=== PATIENT | female | born 1975 | race Two or more races ===

== ENCOUNTER 2020-07-13 10:25 | Outpatient (REF) | payer OTHER, SELFPAY ==
--- NOTE | 2020-07-13 | US_ITS ---
EXAMINATION: US PELVIS COMPLETE CLINICAL INFORMATION: Excessive and frequent menstruation. COMPARISON: None. TECHNIQUE: Transabdominal and transvaginal ultrasound of pelvis is performed. FINDINGS: On transabdominal ultrasound, the uterus is anteverted and anteflexed measuring 9.1 cm in length, 4.2 cm in AP and 5.0 cm in transverse dimension. Endometrial thickness is 1.1 cm. No focal lesion seen. There are small nabothian cysts seen in the cervix. Left ovary measures 2.6 x 1.0 x 2.37 volume 3.1 mL. Previously measured 3.5 x 2.7 x 2.3 cm. Right ovary measures 6.1 x 4.1 x 4.9 cm and volume 64.1 mL. There is anechoic cyst measuring 6.0 x 3.3 x 5.1 cm with small daughter cyst with septations within measuring 3.1 x 2.9 x 2.9 cm. There is increased vascularity in the daughter cyst. There is a small paraovarian anechoic cyst measuring 2.1 x 1.5 x 1 0.5 mL There is no fluid in the cul-de-sac. IMPRESSION: Small nabothian cysts in the cervix. The uterus otherwise is unremarkable. Large right ovarian cysts with septated daughter cyst within. There is a right paraovarian cyst as well. There is no free fluid in cul-de-sac.
== END 2020-07-13 10:26 | disposition home or self-care (01) ==
LOC: HO.HMGCX 10:25
PROVIDERS: PCP Internal Medicine; Visit Provider Advanced Practice Midwife
DX: N92.0 Excessive and frequent menstruation with regular cycle (principal)
CPT/HCPCS: 76830; 76856

== ENCOUNTER 2020-08-06 07:47 | Outpatient (REF) | payer OTHER, SELFPAY | END 2020-08-06 07:48 | disposition home or self-care (01) | LOC: HO.LAB 07:47 | PROVIDERS: Visit Provider Obstetrics & Gynecology | DX: N93.9 Abnormal uterine and vaginal bleeding, unspecified (principal); N83.209 Unspecified ovarian cyst, unspecified side | CPT/HCPCS: 88305; 99202 ==

== ENCOUNTER 2020-08-07 06:57 | Outpatient (REF) | payer OTHER, SELFPAY ==
[2020-08-09 19:09] LABS: Follicle Stimulating Hormone 7.8 mIU/mL
[2020-08-13 23:31] LABS: Estradiol Free 0.15 pg/mL; Estradiol, Ultrasensitive 8 pg/mL
== END 2020-08-07 06:58 | disposition home or self-care (01) ==
LOC: HO.LAB 06:57
PROVIDERS: PCP Internal Medicine; Visit Provider Obstetrics & Gynecology
DX: N93.9 Abnormal uterine and vaginal bleeding, unspecified (principal); N83.209 Unspecified ovarian cyst, unspecified side
CPT/HCPCS: 82670; 83001

== ENCOUNTER 2020-08-11 08:28 | Outpatient (REF) | payer OTHER, SELFPAY | END 2020-08-11 08:29 | disposition home or self-care (01) | LOC: HO.LAB 08:28 | PROVIDERS: Visit Provider Internal Medicine | DX: Z20.828 Contact with and (suspected) exposure to other viral communicable diseases (principal) | CPT/HCPCS: C9803; U0003 ==

== ENCOUNTER → 2020-08-17 10:35 | Outpatient (BNVA) | payer OTHER, SELFPAY | PROVIDERS: Visit Provider Obstetrics & Gynecology | DX: Z76.89 Persons encountering health services in other specified circumstances (principal) ==

== ENCOUNTER → 2020-08-25 14:58 | Outpatient (BNVA) | payer OTHER, SELFPAY | PROVIDERS: Visit Provider Obstetrics & Gynecology | DX: Z76.89 Persons encountering health services in other specified circumstances (principal) ==

== ENCOUNTER → 2020-08-30 10:35 | Outpatient (BNVA) | payer SELFPAY | PROVIDERS: PCP Internal Medicine; Visit Provider Obstetrics & Gynecology | DX: Z01.818 Encounter for other preprocedural examination (principal); N93.9 Abnormal uterine and vaginal bleeding, unspecified; Z87.891 Personal history of nicotine dependence | CPT/HCPCS: 99212 ==

== ENCOUNTER 2020-09-02 09:01 | Day surgery (SDC) | payer SELFPAY ==
[2020-08-30 08:54] VITALS: BMI 30.2
--- NOTE | 2020-09-01 10:57 | HO.ANESPROP2 ---
Documented by User: Brigitte Merlos 09/01/20 10:58 HPI - Anesthesia Eval Consult details Narrative: 44yo F for hysteroscopy endometrial ablation [facility] Past Medical History Medical History Anemia Lab test negative for COVID-19 virus Post-operative nausea and vomiting Vaginal bleeding between periods Wears partial dentures Surgical History Surgical History History of pubovaginal sling Hx of tubal ligation Social History Social History (Updated 09/02/20 @ 10:02 by Whitney Montague) Alcohol intake: never Smoking Status: Former smoker Tobacco Type: Cigarette Smoked in Last 30 Days: No Smoking Quit Date: age 16 Use of substances other than those prescribed or required for medical reasons: Yes Substance Use Type: Marijuana Last Used Substance Other:: Yesterday Have you been hit, kicked, punched, or otherwise hurt by someone within the past year? If so, by whom?: No Advance Directives Information Provided: No Recently lost weight without trying: No Gender identity: female Meds Allergies Allergy/AdvReac Type Severity Reaction Status Date / Time No Known Allergies Allergy Verified 08/30/20 10:54 Home Medications Medication Instructions Recorded Confirmed Type ferrous sulfate 325 mg (65 mg 325 mg PO Q OTHER DAY 08/06/20 08/30/20 History iron) tablet Exam Exam Date and Time: September 01, 2020 1057 Height,Weight and Vital Signs: Height 5 ft 1 in Weight 72.575 kg Assessment and Plan Assessment Anesthesia Assessment: Chart Reviewed Documented by User: Whitney Montague 09/02/20 10:52 [facility] Past Medical History Medical History Anemia Lab test negative for COVID-19 virus Post-operative nausea and vomiting Vaginal bleeding between periods Wears partial dentures Family History Family history of problems with anesthesia: No Surgical History Surgical History History of pubovaginal sling Hx of tubal ligation History of Problems with Anesthesia: No Social History Social History (Updated 09/02/20 @ 10:02 by Whitney Montague) Alcohol intake: never Smoking Status: Former smoker Tobacco Type: Cigarette Smoked in Last 30 Days: No Smoking Quit Date: age 16 Use of substances other than those prescribed or required for medical reasons: Yes Substance Use Type: Marijuana Last Used Substance Other:: Yesterday Have you been hit, kicked, punched, or otherwise hurt by someone within the past year? If so, by whom?: No Advance Directives Information Provided: No Recently lost weight without trying: No Gender identity: female Meds Allergies Allergy/AdvReac Type Severity Reaction Status Date / Time No Known Allergies Allergy Verified 08/30/20 10:54 Home Medications Medication Instructions Recorded Confirmed Type ferrous sulfate 325 mg (65 mg 325 mg PO Q OTHER DAY 08/06/20 08/30/20 History iron) tablet Exam Height,Weight and Vital Signs: Vital Signs Temp Pulse Resp BP Pulse Ox 09/02/20 09:23 97.7 F 90 18 114/72 99 Pertinent Lab Results Pertinent Lab Results: Lab Results 09/02/20 Range/Units 09:18 Beta HCG, Quant < 2 mIU/mL Airway Mallampati Class: II TM Dist: >3cm Neck ROM: Full Denture: Upper Heart: RRR Lungs: CTAB Assessment and Plan Assessment Anesthesia Assessment: Anesthesia Plan Discussed and Chart Reviewed Final Anesthetic Review NPO: Yes ASA Class: II Final Preanesthetic Review: No Changes in Pt Med Stat, Meds/Allgs Chart Reviewed and Anes Risks/Benef Reviewed Patient Risk: Low Procedure Risk: Low Anesthetic Plan Anesthetic Plan: GA Disposition: Standard PACU
[2020-09-02] VITALS (16 sets, daily range): BP systolic 109–143; BP diastolic 70–85; PULSE 70–90; RESP 12–18; TEMP 36.1–37.1; O2SAT 96–100
[2020-09-02] MEDS: Lactated Ringers 1,000 ML 100 ML IVCONT (09:29)
[2020-09-02] MEDS: Acetaminophen 325 MG TABLET 650 MG PO (09:33)
[2020-09-02 10:28] LABS: HCG Quantitative < 2 mIU/mL
--- NOTE | 2020-09-02 10:44 | MHC.SHP ---
Pre-Procedural Eval Section A The patient is an INPATIENT: No Changes since office visit: No Cold of Flu in the past 2 weeks, No New Medical Problems, No Changes in Medication and No Patient answered all questions The History & Physical has been completed within 30 days and I have reviewed it.: Yes Section B Chief Complaint: abnormal vaginal bleeding Allergies: Allergies Allergy/AdvReac Type Severity Reaction Status Date / Time No Known Allergies Allergy Verified 08/30/20 10:54 Plan Patient has been examined and remains a candidate for the planned procedure
--- NOTE | 2020-09-02 11:51 | P.OP_ITS ---
Operative Note Operative Note Date of Service: 09/02/20 Narrative: Ms. Hernandez is a 44 year old with menorrhagia for the last two months. Medical management was attempted with provera but was inadequate to resolve symptoms. An endometrial biopsy was performed, which showed prolif erative endometrium without atypia. The patient was counseled that endometrial ablation is not indicated if she desires future fertility. The patient expressed understanding of this and stated that her family planning is complete and her current form of control is tubal ligation. Surgical Risks: The patient was informed of the risks and benefits of the procedure. Risks included but were not limited to bleeding, infection, injury to the vulva, vagina, or cervix, and uterine perforation. The patient was also informed of the risk that the Novasure ablation may not result in full resolution of symptoms. The patient expressed understanding of the risks involved, all questions were answered, and she consented to the procedure. The patient was taken to the operating room where a time out was performed to confirm correct patient and correct procedure. General anesthesia was established. The patient was then positioned on the operating table in the dorsal lithotomy position and her legs supported using stirrups. All pressure points were padded and a warm blanket was placed to maintain control of core body temperature. The patient was then prepped and draped in the usual sterile fashion. A bimanual exam was performed and the uterus was found to be anteverted. The adnexa were palpated bilaterally and there were no palpable masses. The bladder was emptied with a straight catheter and 50mL of urine was obtained. A bivalve speculum was inserted into the vagina. The anterior lip of the cervix was visualized and grasped using a single tooth tenaculum. The hysteroscope was introduced through the cervix and advanced to the fundus of the uterus under direct visualization using distending media. Inspection of the entire uterine cavity was performed. There were no abnormalities noted, although the endometrium looked polypoid--no discrete polyps or myoma noted. The ostia were visualized bilaterally. The hysteroscope was then removed. A curette was inserted through the cervix to the fundus and sharp curettage was performed in 360 degrees. Endometrial curettings were sent to pathology. The distance from the fundus to the cervix was marked and measured and found to be 5cm. The sound was then removed and the Novasure was introduced through the cervix and advanced to the fundus. The Novasure was released and rotated from side to side in order to measure the cavity width; it was found to be 4.4cm. The test was performed using the NovaSure and there was no leakage of gas noted. The NovaSure was then set and deployed. It was set to a power of 80V and a burn time of 1:05. The NovaSure was then fully retracted and the hysteroscope reintroduced through the cervix and global ablation to the entire cavity was noted. The procedure was felt to be successful. The hysteroscope was then removed and the single tooth tenaculum was removed from the anterior lip of the cervix. Good hemostasis was confirmed. All needle, sponge, and instrument counts were noted to be correct x2 at the end of the procedure. The patient was transferred to the recovery room in stable condition. EBL: minimal Fluid deficit: 75mL (which was believed to be located in the tubing)
[2020-09-02] MEDS: oxyCODONE HCl Immed Release 5 MG TABLET PO ×2 (12:15→13:16)
[2020-09-02] MEDS: fentaNYL citrate/PF 100 MCG/2 ML VIAL 25 MCG IVPUSH ×4 (12:16→12:48)
--- NOTE | 2020-09-02 13:08 | HO.POSTANES ---
Post Anesthesia Evaluation Post Anesthesia Evaluation Vital Signs: Vital Signs Temp Pulse Resp BP Pulse Ox 09/02/20 12:53 97 F 83 16 115/76 99 09/02/20 12:48 16 09/02/20 12:47 74 16 109/76 97 09/02/20 12:35 72 16 110/70 96 09/02/20 12:31 16 09/02/20 12:30 70 16 118/74 97 09/02/20 12:21 16 09/02/20 12:20 73 16 115/81 97 09/02/20 12:16 16 09/02/20 12:15 70 16 130/70 98 09/02/20 11:57 78 16 117/77 99 09/02/20 11:52 98.7 F 87 12 118/75 100 09/02/20 09:23 97.7 F 90 18 114/72 99 09/02/20 09:15 97.7 F 90 18 114/72 99 Anesthesia: General Mental Status: Awake Pain Control: Satisfactory Nausea/Vomiting: None Hydration: Adequate Anesthesia-Related Issues: No Anes. Related Issues
== END 2020-09-02 23:59 | disposition home or self-care (01) ==
PROVIDERS: PCP Internal Medicine; Visit Provider Obstetrics & Gynecology
PROC: 0UJD8ZZ Inspection of Uterus and Cervix, Via Natural or Artificial Opening Endoscopic (ICD-10-PCS; CPT 58555; principal; 2020-09-02 10:50)
DX: N93.9 Abnormal uterine and vaginal bleeding, unspecified (principal); R10.2 Pelvic and perineal pain; N85.00 Endometrial hyperplasia, unspecified; N92.0 Excessive and frequent menstruation with regular cycle; N85.8 Other specified noninflammatory disorders of uterus; Z98.51 Tubal ligation status
CPT/HCPCS: 58563; 84702; 88305; J1100; J1885; J2250; J2405; J3010

== ENCOUNTER 2020-09-14 08:02 | Outpatient (REF) | payer SELFPAY | END 2020-09-14 08:03 | disposition home or self-care (01) | LOC: HO.LAB 08:02 | PROVIDERS: PCP Internal Medicine; Visit Provider Internal Medicine | DX: Z20.828 Contact with and (suspected) exposure to other viral communicable diseases (principal) | CPT/HCPCS: C9803; U0003 ==

== ENCOUNTER → 2020-09-15 11:07 | Outpatient (BNVA) | payer SELFPAY | PROVIDERS: PCP Internal Medicine; Visit Provider Obstetrics & Gynecology | DX: Z09 Encounter for follow-up examination after completed treatment for conditions other than malignant neoplasm (principal); Z98.890 Other specified postprocedural states | CPT/HCPCS: 99212 ==

== ENCOUNTER 2020-09-22 10:35 | Outpatient (REF) | payer SELFPAY ==
--- NOTE | 2020-09-22 10:39 | US_ITS ---
EXAMINATION: ULTRASOUND PELVIS COMPLETE. CLINICAL INFORMATION: Unspecified origin cysts. COMPARISON: None TECHNIQUE: Transabdominal and transvaginal ultrasound the pelvis is performed. FINDINGS: On transabdominal ultrasound the uterus is anteflexed and anteverted measuring 7.8 cm in length, 3.5 cm in AP and 4.8 cm in transverse dimension. No focal lesions seen. Endometrial thickness is 0.5 cm. Right ovary measures 4.2 x 2.9 x 2.5 cm and volume 15.9 mL. There is anechoic cyst measuring 2.6 x 1.8 x 2.5 cm. There is a right paraovarian cyst measuring 1.9 x 1.3 x 1.7 cm. The left ovary measures 2.3 x 2.0 x 2.0 cm and volume 4.8 mL. There is no free fluid in cul-de-sac. US/US pelvic complete IMPRESSION: Small 2.6 cm right ovary cyst and 1.9 cm right paraovarian cyst.. Unremarkable left ovary and uterus.
--- NOTE | 2020-09-22 10:39 | US_ITS ---
EXAMINATION: ULTRASOUND PELVIS COMPLETE. CLINICAL INFORMATION: Unspecified origin cysts. COMPARISON: None TECHNIQUE: Transabdominal and transvaginal ultrasound the pelvis is performed. FINDINGS: On transabdominal ultrasound the uterus is anteflexed and anteverted measuring 7.8 cm in length, 3.5 cm in AP and 4.8 cm in transverse dimension. No focal lesions seen. Endometrial thickness is 0.5 cm. Right ovary measures 4.2 x 2.9 x 2.5 cm and volume 15.9 mL. There is anechoic cyst measuring 2.6 x 1.8 x 2.5 cm. There is a right paraovarian cyst measuring 1.9 x 1.3 x 1.7 cm. The left ovary measures 2.3 x 2.0 x 2.0 cm and volume 4.8 mL. There is no free fluid in cul-de-sac. US/US transvaginal IMPRESSION: Small 2.6 cm right ovary cyst and 1.9 cm right paraovarian cyst.. Unremarkable left ovary and uterus.
== END 2020-09-22 10:36 | disposition home or self-care (01) ==
LOC: HO.US 10:35
PROVIDERS: Visit Provider Obstetrics & Gynecology
DX: N83.209 Unspecified ovarian cyst, unspecified side (principal)
CPT/HCPCS: 76830; 76856

== ENCOUNTER → 2020-10-06 11:11 | Outpatient (BNVA) | payer OTHER, SELFPAY | PROVIDERS: PCP Internal Medicine; Visit Provider Obstetrics & Gynecology | DX: Z76.89 Persons encountering health services in other specified circumstances (principal) ==

== ENCOUNTER 2020-10-08 08:32 | Outpatient (REF) | payer OTHER, SELFPAY ==
[2020-10-09 12:24] LABS: BV Int Neg Control Negative (Negative); BV Int Pos Control Positive (Positive)
[2020-10-09 15:37] LABS: C. trachomatis RNA TMA NOT DETECTED (NOT DETECTED); N. gonorrhoeae RNA TMA NOT DETECTED (NOT DETECTED)
== END 2020-10-08 08:33 | disposition home or self-care (01) ==
LOC: HO.LAB 08:32
PROVIDERS: Advanced Practice Midwife; Visit Provider Internal Medicine
DX: Z20.822 Contact with and (suspected) exposure to COVID-19 (principal)
CPT/HCPCS: 36415; 81003; 87480; 87491; 87510; 87591; 87660; 99212; C9803; U0003

== ENCOUNTER 2020-11-09 07:53 | Outpatient (REF) | payer OTHER, SELFPAY | END 2020-11-09 07:54 | disposition home or self-care (01) | LOC: HO.LAB 07:53 | PROVIDERS: Visit Provider Internal Medicine | DX: Z20.822 Contact with and (suspected) exposure to COVID-19 (principal) | CPT/HCPCS: 36415; C9803; U0003; U0005 ==

== ENCOUNTER 2020-11-22 07:56 | Outpatient (REF) | payer OTHER, SELFPAY | END 2020-11-22 07:57 | disposition home or self-care (01) | LOC: HO.LAB 07:56 | PROVIDERS: Visit Provider Internal Medicine | DX: Z20.822 Contact with and (suspected) exposure to COVID-19 (principal) | CPT/HCPCS: 36415; C9803; U0003; U0005 ==

== ENCOUNTER 2020-12-13 11:25 | Outpatient (REF) | payer OTHER, SELFPAY | END 2020-12-13 11:26 | disposition home or self-care (01) | LOC: HO.LAB 11:25 | PROVIDERS: Visit Provider Internal Medicine | DX: Z20.822 Contact with and (suspected) exposure to COVID-19 (principal) | CPT/HCPCS: 36415; C9803; U0003; U0005 ==

== ENCOUNTER 2020-12-30 09:10 | Outpatient (REF) | payer OTHER, SELFPAY ==
[2020-12-30 09:44] LABS: COVID-19 Test Negative (Negative); IDNOW Serial# 55D5AD1C
== END 2020-12-30 09:11 | disposition home or self-care (01) ==
LOC: HO.LAB 09:10
PROVIDERS: Visit Provider Internal Medicine
DX: Z20.822 Contact with and (suspected) exposure to COVID-19 (principal)
CPT/HCPCS: 36415; 87635; C9803

== ENCOUNTER 2021-01-13 08:26 | Outpatient (REF) | payer OTHER, SELFPAY ==
[2021-01-13 08:54] LABS: COVID-19 Test Negative (Negative)
== END 2021-01-13 08:27 | disposition home or self-care (01) ==
LOC: HO.LAB 08:26
PROVIDERS: Visit Provider Internal Medicine
DX: Z20.822 Contact with and (suspected) exposure to COVID-19 (principal)
CPT/HCPCS: 36415; 87635; C9803

== ENCOUNTER 2021-01-18 08:58 | Outpatient (REF) | payer OTHER, SELFPAY ==
[2021-01-18 09:18] LABS: COVID-19 Test Negative (Negative)
== END 2021-01-18 08:59 | disposition home or self-care (01) ==
LOC: HO.LAB 08:58
PROVIDERS: Visit Provider Internal Medicine
DX: Z20.822 Contact with and (suspected) exposure to COVID-19 (principal)
CPT/HCPCS: 36415; 87635; C9803

== ENCOUNTER 2021-03-04 09:40 | Outpatient (REF) | payer OTHER, SELFPAY | END 2021-03-04 09:41 | disposition home or self-care (01) | LOC: HO.LAB 09:40 | PROVIDERS: Visit Provider Internal Medicine | DX: Z20.822 Contact with and (suspected) exposure to COVID-19 (principal) | CPT/HCPCS: C9803; U0003; U0005 ==

== ENCOUNTER 2021-04-26 09:20 | Outpatient (REF) | payer OTHER, SELFPAY | END 2021-04-26 09:21 | disposition home or self-care (01) | LOC: HO.LAB 09:20 | PROVIDERS: Visit Provider Internal Medicine | DX: Z20.822 Contact with and (suspected) exposure to COVID-19 (principal) | CPT/HCPCS: C9803; U0003; U0005 ==

== ENCOUNTER 2021-05-16 08:21 | Outpatient (REF) | payer OTHER, SELFPAY ==
[2021-05-16 10:53] LABS: Hematocrit 39.5 % (37-47); Hemoglobin 12.9 g/dl (12.0-16.0); Mean Corpuscular HGB Conc 32.7 g/dl (31.0-35.0); Mean Corpuscular Hemoglobin 27.2 pg (27.0-33.0); Mean Corpuscular Volume 83.3 fL (80-98); Mean Platelet Volume 12.1 fL (9.4-12.3); Platelet Count 262 X10*3/uL (160-400); Red Blood Count 4.74 X10*6/uL (4.20-5.50); Red Cell Distribution Width 13.5 % (11.0-16.0); White Blood Count 7.5 X10*3/uL (4.8-10.8)
[2021-05-16 11:31] LABS: Syphilis Screen Nonreactive (Nonreactive)
[2021-05-16 11:34] LABS: HBsAGNum1 0.26 S/CO (0.00-0.99); Hepatitis B Surface Antigen Negative (Negative); Thyroid Stimulating Hormone 0.91 uIU/mL (0.32-4.0)
[2021-05-16 11:35] LABS: HIV AB/AG Nonreactive (Nonreactive); HIV Num 1 0.07 S/CO (0.00-0.99)
[2021-05-16 13:10] LABS: ~HepC Num2 0.92; ~HepC Num3 0.92; ~Hepatitis C Antibody GRAYZONE (Nonreactive)
[2021-05-17 04:56] LABS: CT PCR NOT DETECTED (Not Detect.); NG PCR NOT DETECTED (Not Detect.)
[2021-05-17 09:36] LABS: BV Int Neg Control Negative (Negative); BV Int Pos Control Positive (Positive)
[2021-05-19 15:12] LABS: HPV mRNA E6/E7 rflx Not Detected (Not Detected)
== END 2021-05-16 08:22 | disposition home or self-care (01) ==
LOC: HO.LAB 08:21
PROVIDERS: Visit Provider Advanced Practice Midwife
DX: Z01.411 Encounter for gynecological examination (general) (routine) with abnormal findings (principal); Z01.84 Encounter for antibody response examination; Z11.51 Encounter for screening for human papillomavirus (HPV); Z11.4 Encounter for screening for human immunodeficiency virus [HIV]; Z11.59 Encounter for screening for other viral diseases; Z11.3 Encounter for screening for infections with a predominantly sexual mode of transmission; N95.1 Menopausal and female climacteric states; R68.82 Decreased libido; E66.9 Obesity, unspecified; Z20.2 Contact with and (suspected) exposure to infections with a predominantly sexual mode of transmission
CPT/HCPCS: 36415; 84443; 85027; 86780; 86803; 87340; 87389; 87480; 87491; 87510; 87591; 87624; 87660; 88142

== ENCOUNTER 2021-07-02 08:05 | Outpatient (REF) | payer OTHER, SELFPAY ==
--- NOTE | ~2021-07-02 | MM_ITS ---
EXAMINATION: MM SCREENING DIGITAL BREAST TOMOSYNTHESIS, BILATERAL CLINICAL INFORMATION: Screening. Asymptomatic. The lifetime risk of breast cancer based on the Tyrer-Cuzick Model is 18%. COMPARISON: Mammography: 01/04/2019, 04/07/2015, 11/20/2013 TECHNIQUE: Digital breast tomosynthesis is performed in both the craniocaudal and mediolateral oblique views along with computer-aided detection (CAD). Synthesized 2D images are generated from the tomosynthesis. FINDINGS: The breasts are heterogeneously dense, which may obscure small masses (ACR BI-RADS breast composition Category c). There are no significant masses, abnormal calcifications, or other abnormalities. The axilla and skin contours are unremarkable. No significant changes. MM/MM tomosynthesis screening BI IMPRESSION: No mammographic evidence of malignancy. ASSESSMENT: BI-RADS 1: Negative RECOMMENDATION: Routine annual mammography screening. This patient's information was entered into a reminder system with a target due date for their next mammogram.
== END 2021-07-02 08:06 | disposition home or self-care (01) ==
LOC: HO.MAMMO 08:05
PROVIDERS: Visit Provider Advanced Practice Midwife
DX: Z12.31 Encounter for screening mammogram for malignant neoplasm of breast (principal)
CPT/HCPCS: 77063; 77067

== ENCOUNTER 2021-07-26 08:39 | Outpatient (REF) | payer OTHER, SELFPAY | END 2021-07-26 08:40 | disposition home or self-care (01) | LOC: HO.LAB 08:39 | PROVIDERS: Visit Provider Internal Medicine | DX: Z20.822 Contact with and (suspected) exposure to COVID-19 (principal) | CPT/HCPCS: C9803; U0003; U0005 ==

== ENCOUNTER 2021-08-23 14:49 | Outpatient (REF) | payer OTHER, SELFPAY ==
[2021-08-23 17:01] LABS: Alanine Aminotransferase 35 U/L (0-31); Albumin Level 3.9 g/dL (3.5-5.0); Alkaline Phosphatase 79 U/L (39-117); Amylase 61 U/L (28-100); Anion Gap 13 (12-20); Aspartate Amino Transferase 22 U/L (5-31); Bilirubin Total 0.2 mg/dL (0.0-1.0); Blood Urea Nitrogen 8 mg/dL (9-16); Calcium 9.1 mg/dL (8.4-10.2); Carbon Dioxide 24 mmol/L (22-29); Chloride 106 mmol/L (96-108); Estimated Glomerular Filt Rate > 60; Glucose Random 98 mg/dL (60-115); Lipase 111 U/L (8-78); Sodium 139 mmol/L (135-145); Total Protein 7.2 g/dL (6.5-8.0)
== END 2021-08-23 14:50 | disposition home or self-care (01) ==
LOC: HO.LAB 14:49
PROVIDERS: Visit Provider Nurse Practitioner
DX: R10.13 Epigastric pain (principal); K59.04 Chronic idiopathic constipation; A04.8 Other specified bacterial intestinal infections
CPT/HCPCS: 36415; 80053; 82150; 83690; 99212

== ENCOUNTER 2021-09-06 08:16 | Outpatient (REF) | payer OTHER, SELFPAY ==
--- NOTE | ~2021-09-06 | US_ITS ---
EXAMINATION: US ABDOMEN COMPLETE CLINICAL INFORMATION: Epigastric pain. COMPARISON: None TECHNIQUE: Real-time imaging of the abdominal viscera. FINDINGS: PANCREAS: Normal. ABDOMINAL AORTA: The proximal, mid, and distal segments are normal in caliber. INFERIOR VENA CAVA: Visualized portions are normal. LIVER: The liver is normal in size. The liver contour is normal. Echotexture is increased. No focal hepatic lesion. There is no intrahepatic biliary duct dilatation seen. GALLBLADDER: Normal. The gallbladder is physiologically distended without evidence of stones, sludge, polyps, wall thickening or pericholecystic fluid. COMMON BILE DUCT: Normal in caliber measuring 0.48 cm in diameter. RIGHT KIDNEY: Normal. No hydronephrosis. No renal calculi or focal parenchymal lesions. The kidney measures 10.6 cm in maximum dimension. LEFT KIDNEY: No hydronephrosis or focal parenchymal lesions. The kidney measures 10.0 cm in maximum dimension. There are several echogenic densities in the upper pole with twinkle artifact suggestive of stones. Largest measures 7 mm. SPLEEN: Normal. The spleen measures 10.0 cm in maximum dimension. FREE FLUID: None. US/US abdomen complete IMPRESSION: Echogenic liver. Probable left renal stones.
== END 2021-09-06 08:17 | disposition home or self-care (01) ==
LOC: HO.HMGCX 08:16
PROVIDERS: Visit Provider Nurse Practitioner
DX: R10.13 Epigastric pain (principal)
CPT/HCPCS: 76700

== ENCOUNTER 2021-09-12 08:09 | Outpatient (REF) | payer OTHER, SELFPAY ==
[2021-09-12 11:59] LABS: IDNOW Serial# 16C4AD1C
[2021-09-12 12:00] LABS: COVID-19 Test Negative (Negative)
== END 2021-09-12 08:10 | disposition home or self-care (01) ==
LOC: HO.LAB 08:09
PROVIDERS: Visit Provider Internal Medicine
DX: Z20.822 Contact with and (suspected) exposure to COVID-19 (principal)
CPT/HCPCS: 36415; 87635; C9803

== ENCOUNTER 2021-09-20 08:42 | Outpatient (REF) | payer OTHER, SELFPAY ==
[2021-09-20 09:09] LABS: COVID-19 Test Positive (Negative); IDNOW Serial# 16C4AD1C
== END 2021-09-20 08:43 | disposition home or self-care (01) ==
LOC: HO.LAB 08:42
PROVIDERS: Visit Provider Internal Medicine
DX: Z20.822 Contact with and (suspected) exposure to COVID-19 (principal)
CPT/HCPCS: 36415; 87635; C9803

== ENCOUNTER 2021-09-29 11:15 | Outpatient (REF) | payer OTHER, SELFPAY ==
[2021-09-29 13:24] LABS: Binax Internal Control QC Valid; Binax Now Covid-19 Ag Negative (Negative)
== END 2021-09-29 11:16 | disposition home or self-care (01) ==
LOC: HO.LAB 11:15
PROVIDERS: Visit Provider Internal Medicine
DX: Z20.822 Contact with and (suspected) exposure to COVID-19 (principal)
CPT/HCPCS: 36415; C9803

== ENCOUNTER 2021-10-18 06:21 | Day surgery (SDC) | payer OTHER, SELFPAY ==
[2021-09-20 15:16] VITALS: BMI 32.3
--- NOTE | 2021-10-17 10:43 | HO.ANESPROP2 ---
Documented by User: Brigitte Merlos NP 10/17/21 10:43 HPI - Anesthesia Eval Consult details Narrative: 45yo F for Upper Endoscopy and Colonoscopy PMFSH Active Problems Active Problems: All Active Problems (Updated 09/20/21 @ 15:19 by Maranda Manning RN) Ovarian cyst (Acute) Abnormal uterine bleeding (Acute) Pelvic pain (Acute) Vaginal discharge (Acute) Perimenopause (Acute) Well woman exam with routine gynecological exam (Acute) Decreased libido (Acute) Potential exposure to STD (Acute) Cervical cancer screening (Acute) Obesity (BMI 30.0-34.9) (Acute) Chronic idiopathic constipation (Acute) Depression with anxiety (Acute) H. pylori infection (Acute) Epigastric pain (Acute) Past Medical History Medical History Anemia COVID-19 vaccine series completed GERD (gastroesophageal reflux disease) Lab test negative for COVID-19 virus Post-operative nausea and vomiting Vaginal bleeding between periods Wears partial dentures Family History Family history of problems with anesthesia: No Surgical History Surgical History History of pubovaginal sling Hx of tubal ligation Status post endometrial ablation History of Problems with Anesthesia: No Social History Social History Alcohol intake: never Patient Tobacco Use Status: Never used Tobacco Substance Use Type: Marijuana Substance Use Frequency: Occasionally Are you DNR?: No Advance Directives: No Advance Directives Information Provided: Yes (informational brochure mailed) Advance Directives on File: No Recently lost weight without trying: No Eating poorly because of decreased appetite: No Nutrition Risks: No Nutritional Risk Gender identity: Female Meds Allergies Allergy/AdvReac Type Severity Reaction Status Date / Time No Known Allergies Allergy Verified 08/23/21 15:22 Home Medications Medication Instructions Recorded Confirmed Last Taken Type ferrous sulfate 325 mg (65 mg 325 mg PO Q OTHER DAY 08/06/20 09/20/21 Unknown History iron) tablet Exam Exam Date and Time: October 17, 2021 1043 Height,Weight and Vital Signs: Height 5 ft 1 in Weight 77.564 kg Pertinent Lab Results Pertinent Lab Results: Laboratory Tests 08/23/21 16:23 Sodium 139 Potassium 4.0 Chloride 106 Carbon Dioxide 24 BUN 8 L Creatinine 0.74 Assessment and Plan Assessment Anesthesia Assessment: Chart Reviewed Final Anesthetic Review Family History of Problems with Anesthesia: No History of Problems with Anesthesia: No Documented by User: Pj Marquez 10/18/21 07:33 REPLACED BY [facility] Past Medical History Medical History Anemia COVID-19 vaccine series completed GERD (gastroesophageal reflux disease) Lab test negative for COVID-19 virus Post-operative nausea and vomiting Vaginal bleeding between periods Wears partial dentures Functional capacity: independent ambulation Surgical History Surgical History History of pubovaginal sling Hx of tubal ligation Status post endometrial ablation History of Problems with Anesthesia: Yes (Ponv ) Social History Social History Alcohol intake: never Patient Tobacco Use Status: Never used Tobacco Substance Use Type: Marijuana Substance Use Frequency: Occasionally Are you DNR?: No Advance Directives: No Advance Directives Information Provided: Yes (informational brochure mailed) Advance Directives on File: No Recently lost weight without trying: No Eating poorly because of decreased appetite: No Nutrition Risks: No Nutritional Risk Gender identity: Female Meds Allergies Allergy/AdvReac Type Severity Reaction Status Date / Time No Known Allergies Allergy Verified 08/23/21 15:22 Home Medications Medication Instructions Recorded Confirmed Last Taken Type ferrous sulfate 325 mg (65 mg 325 mg PO Q OTHER DAY 08/06/20 09/20/21 Unknown History iron) tablet Exam Airway Mallampati Class: III TM Dist: >3cm Neck ROM: Full Partial: Upper Loose/Missing/Broken Teeth: Yes (Loose upper ) Heart: rrr Lungs: bl breath sounds Assessment and Plan Final Anesthetic Review History of Problems with Anesthesia: Yes (Ponv ) NPO: Yes ASA Class: II, III and Emergency Final Preanesthetic Review: Meds/Allgs Chart Reviewed and Anes Risks/Benef Reviewed Patient Risk: Intermediate Procedure Risk: Intermediate Anesthetic Plan Anesthetic Plan: MAC: Disposition: Standard PACU
[2021-10-18 06:44] VITALS: BP 125/84; PULSE 86; RESP 16; TEMP 36.1; O2SAT 98
[2021-10-18] MEDS: Lactated Ringers 1,000 ML 100 ML IVCONT (06:49)
--- NOTE | 2021-10-18 07:28 | MHC.SHP ---
Pre-Procedural Eval Section A Date of Service: 10/18/21 The patient is an INPATIENT: No The History & Physical has been completed within 30 days and I have reviewed it.: No Section B Chief Complaint: Colon cancer screening, Epigastric Pain Details of Present Illness: Colon cancer screening, epigastric pain, GERD, nausea, bloating, early satiety Relevant Family History (Specify if Yes): No Relevant Social History: None Present Medications: see Short Stay Collaborative assessment Medical History: Significant History (Anemia Lab test negative for COVID-19 virus Post-operative nausea and vomiting Vaginal bleeding between periods Wears partial dentures) History of Previous Operations: Relevant previous surgery/procedure and date(s) (History of pubovaginal sling Hx of tubal ligation Status post endometrial ablation) Allergies: Allergies Allergy/AdvReac Type Severity Reaction Status Date / Time No Known Allergies Allergy Verified 08/23/21 15:22 Review of Systems Sugical H&P ROS: Negative: Constitution, Cardiovascular and Respiratory and Yes, Specify: Gastrointestinal (GERD, constipation) Exam Surgical H&P Exam: Normal: Heart, Normal: Lungs, Normal: Extremities and Normal: Abdomen Plan Diagnosis/Plan: Unchanged I have reviewed the history and physical and performed a pertinent physical examination on my patient. No changes have occurred unless specified.
--- NOTE | 2021-10-18 07:30 | PM.OP ---
Brief Operative Note Date of Service: 10/18/21 Pre-op diagnosis: Colon cancer screening, epigastric pain, GERD, nausea, bloating, early satiety Post-op diagnosis: other (GERD, Gastritis, Gastric ulcer, colon polyps, diverticulosis, hemorrhoids) Procedure: FLEXIBLE TRANSORAL UPPER GASTROINTESTINAL ENDOSCOPY WITH BIOPSIES AND COLONOSCOPY TILL CECUM WITH BIOPSIES UPPER ENDOSCOPY Consent: Indications for the procedure and potential complications of bleeding, perforation, reaction to medications and missed diagnosis were discussed with the patient and informed consent was obtained. Instrument: Olympus GIF H 190 mid size upper endoscope Monitoring: Vital signs and clinical assessment, continuous EKG monitoring, Pulse oximetry, Carbon Dioxide monitoring and blood pressure monitoring were done throughout the procedure. Procedure: The patient was placed in the left lateral decubitis position and pre-procedure medications were administered and a bite block was placed. The endoscope was inserted into the mouth and advanced under direct vision to the third part of duodenum. A careful inspection was made as the upper endoscope was withdrawn including a retroflexed examination of the proximal stomach; Findings and interventions are described below. Findings: Larynx: Normal Esophagus: GE junction at 36 cms. No esophagitis or Clement's. Stomach: A 7-8 mm ulcer in the antrum with surrouding edematous folds - biopsied. Mild gastric erythema. Biopsies were obtained. Grade 2 flap valve on retroflexed examination of the cardia. Duodenum: Normal bulb and descending duodenum. Biopsies were obtained from 3rd part of duodenum to check for celiac sprue. Intervention: Biopsies as noted above COLONOSCOPY PROCEDURE NOTE Consent: Indications for the procedure and potential complications of bleeding, perforation, reaction to medications and missed diagnosis were discussed with the patient and informed consent was obtained. Instrument: Olympus PCF H 190 L variable stiffness pediatric colonoscope Monitoring: Vital signs and clinical assessment, intermittent blood pressure monitoring, continuous EKG monitoring, Pulse oximetry and Carbon Dioxide monitoring were done throughout the procedure. Colon withdrawl time was 23 minutes. Procedure: The patient was placed in the left lateral decubitis position and pre-procedure medications were administered. After a digital rectal examination of the ano-rectum, the video colonoscope was inserted into the rectum and advanced through the colon to the cecum. The colonoscope was slowly withdrawn in a retrograde panoramic fashion and the colon mucosa was carefully examined including a retroflexed view of the rectum. Findings and interventions are described below. Procedure Difficulty: : Without difficulty Findings: Terminal Ileum: Not evaluated Cecum: A 3-4 mm diminutive appearing polyp which was removed with cold biopsy Ascending Colon: Normal Transverse Colon: Normal Descending Colon: Normal Sigmoid Colon: Moderate diverticulosis Rectum: Normal Ano-rectum: Moderate internal hemorrhoids and perianal skin tags Colon preparation: Good after copious irrigation Impression and Post Procedure Diagnosis: Endoscopy Findings: ESOPHAGUS: Normal STOMACH: A 7-8 mm ulcer in the antrum with surrouding edematous folds (likely due to Ibuprofen) - biopsied. Mild gastric erythema. Biopsies were obtained. DUODENUM: Normal - biopsied to check for celiac sprue Colonoscopy Findings: One small polyp removed Moderate diverticulosis seen in the sigmoid colon Moderate hemorrhoids on retroflexed exam. Plan: Await pathology results. Stop Ibuprofen if possible. Patient has an appointment on 11/01/21 in the [facility] with Brielle Palomares NP. REpeat EGD in 3 months for FU of gastric ulcer. Repeat Colonoscopy interval based on path results - in 5 years if polyps are adenomatous and 10 years if polyps are hyperplastic. GERD, PUD, colon polyps and diverticulosis handouts were given in the discharge area Surgeon: Kishore Page MD Anesthesia: MAC (Dr Marquez & Dr Brewer) Was an Provider Relations Representative used for this Procedure?: Yes Provider Relations Representative: Kate Patel Estimated blood loss (mL): 0 Pathology: other (A. small bowel bxs, R/O celiac B. gastric antrum bxs, R/O H. pylori C. gastric ulcer bxs D. cecal polyp) Condition: stable Disposition: PACU
--- NOTE | 2021-10-18 07:30 | W.PM.OPN ---
Operative Note Operative Note Date of Service: 10/18/21 Narrative: Pre-op diagnosis:?Colon cancer screening, epigastric pain, GERD, nausea, bloating, early satiety Post-op diagnosis:?other (GERD, Gastritis, Gastric ulcer) Procedure:? FLEXIBLE TRANSORAL UPPER GASTROINTESTINAL ENDOSCOPY WITH BIOPSIES AND COLONOSCOPY TILL CECUM WITH BIOPSIES UPPER ENDOSCOPY Consent:?Indications for the procedure and potential complications of bleeding, perforation, reaction to medications and missed diagnosis were discussed with the patient and informed consent was obtained. Instrument:?Olympus GIF H 190 mid size upper endoscope Monitoring: Vital signs and clinical assessment, continuous EKG monitoring, Pulse oximetry, Carbon Dioxide monitoring and blood pressure monitoring were done throughout the procedure. Procedure:?The patient was placed in the left lateral decubitis position and pre-procedure medications were administered and a bite block was placed. The endoscope was inserted into the mouth and advanced under direct vision to the third part of duodenum. A careful inspection was made as the upper endoscope was withdrawn including a retroflexed examination of the proximal stomach; Findings and interventions are described below. Findings: Larynx:? Normal Esophagus:?GE junction at 36 cms.? No esophagitis or Clement's. Stomach:?A 7-8 mm ulcer in the antrum with surrouding edematous folds - biopsied. Mild gastric erythema. Biopsies were obtained. Grade 2 flap valve on retroflexed examination of the cardia. Duodenum:?Normal bulb and descending duodenum.? Biopsies were obtained from 3rd part of duodenum to check for celiac sprue. Intervention:?Biopsies as noted above COLONOSCOPY PROCEDURE NOTE Consent:?Indications for the procedure and potential complications of bleeding, perforation, reaction to medications and missed diagnosis were discussed with the patient and informed consent was obtained. Instrument:?Olympus PCF H 190 L variable stiffness pediatric colonoscope Monitoring:?Vital signs and clinical assessment, intermittent blood pressure monitoring, continuous EKG monitoring, Pulse oximetry and Carbon Dioxide monitoring were done throughout the procedure. Colon withdrawl time was 23 minutes. Procedure:?The patient was placed in the left lateral decubitis position and pre-procedure medications were administered. After a digital rectal examination of the ano-rectum, the video colonoscope was inserted into the rectum and advanced through the colon to the cecum. The colonoscope was slowly withdrawn in a retrograde panoramic fashion and the colon mucosa was carefully examined including a retroflexed view of the rectum. Findings and interventions are described below. Procedure Difficulty:?: Without difficulty Findings: Terminal Ileum: Not evaluated Cecum:? A 3-4 mm diminutive appearing polyp which was removed with cold biopsy Ascending Colon:??Normal Transverse Colon:??Normal Descending Colon:? Normal Sigmoid Colon:??Moderate diverticulosis Rectum:??Normal Ano-rectum:??Moderate internal hemorrhoids and perianal skin tags Colon preparation:? Good after copious irrigation Impression and Post Procedure Diagnosis: Endoscopy Findings: ESOPHAGUS: Normal STOMACH:?A 7-8 mm ulcer in the antrum with surrouding edematous folds (likely due to Ibuprofen) - biopsied. Mild gastric erythema. Biopsies were obtained. DUODENUM: Normal - biopsied to check for celiac sprue Colonoscopy Findings: One small polyp removed Moderate diverticulosis seen in the sigmoid colon Moderate hemorrhoids on retroflexed exam. Plan: Await pathology results. Stop Ibuprofen if possible. Patient has an appointment on 11/01/21 in the [facility] Clinic with? Brielle Palomares NP. REpeat EGD in 3 months for FU of gastric ulcer. Repeat Colonoscopy interval based on path results - in 5 years if polyps are adenomatous and 10 years if polyps are hyperplastic. Above findings were reviewed with the patient and GERD, PUD, colon polyps and diverticulosis handouts were given in the discharge area Surgeon:?Kishore Page MD Anesthesia:?MAC (Dr Marquez & Dr Brewer) Was an Director Of Marketing And Promotions used for this Procedure?:?Yes Director Of Marketing And Promotions:?Kate Patel Estimated blood loss (mL):?0 Pathology:?other (A. small bowel bxs, R/O celiac? B. gastric antrum bxs, R/O H. pylori? C. gastric ulcer bxs? D. cecal polyp) Condition:?stable Disposition:?PACU
[2021-10-18 08:44] VITALS: BP 95/70; PULSE 98; RESP 16; TEMP 36.4; O2SAT 99
[2021-10-18 08:59] VITALS: BP 105/67; PULSE 87; RESP 16; O2SAT 96
[2021-10-18 09:14] VITALS: BP 112/70; PULSE 93; RESP 16; TEMP 36.4; O2SAT 96
--- NOTE | 2021-10-18 09:42 | PC.NURSE ---
DR. MÉNDEZ EVALUATED PATIENT AFTER SHE REPORTED A HEADACHE. NO NEW MEDICATIONS ORDERED. DR. MÉNDEZ STATED HEADACHE SHOULD RESOLVE ON ITS OWN. PT TO BE DISCHARGED AND IF FURTHER ISSUES TO HAVE HER GO TO THE ED AND/OR CALL 911.
== END 2021-10-18 09:54 ==
PROVIDERS: Visit Provider Internal Medicine Gastroenterology
PROC: (CPT 45380; principal; 2021-10-18 07:30)
DX: Z12.11 Encounter for screening for malignant neoplasm of colon (principal); Z80.0 Family history of malignant neoplasm of digestive organs; K63.5 Polyp of colon; K57.30 Diverticulosis of large intestine without perforation or abscess without bleeding; K64.8 Other hemorrhoids; K64.4 Residual hemorrhoidal skin tags; K59.04 Chronic idiopathic constipation; K21.9 Gastro-esophageal reflux disease without esophagitis; K29.50 Unspecified chronic gastritis without bleeding; B96.81 Helicobacter pylori [H. pylori] as the cause of diseases classified elsewhere; K25.9 Gastric ulcer, unspecified as acute or chronic, without hemorrhage or perforation; D64.9 Anemia, unspecified; Z79.899 Other long term (current) drug therapy; Z79.1 Long term (current) use of non-steroidal anti-inflammatories (NSAID); F12.90 Cannabis use, unspecified, uncomplicated; Z98.51 Tubal ligation status
CPT/HCPCS: 45380; 43239; 88305; 88342

== ENCOUNTER 2021-10-25 09:25 | Outpatient (REF) | payer OTHER, SELFPAY ==
--- NOTE | ~2021-10-25 | XR_ITS ---
EXAMINATION: XR CHEST CLINICAL INFORMATION: Shortness of breath COMPARISON: None TECHNIQUE: 2 views of the chest were obtained. FINDINGS: No significant abnormality is noted involving the heart, lungs, mediastinum, bony thorax or soft tissues. XR/XR chest 2V IMPRESSION: Unremarkable examination.
== END 2021-10-25 09:26 | disposition home or self-care (01) ==
LOC: HO.XRAY 09:25
PROVIDERS: Visit Provider Internal Medicine Gastroenterology
DX: R06.02 Shortness of breath (principal)
CPT/HCPCS: 71046

== ENCOUNTER 2021-10-26 10:27 | Outpatient (REF) | payer OTHER, SELFPAY ==
[2021-10-26 10:48] LABS: COVID-19 Test Negative (Negative)
== END 2021-10-26 10:28 | disposition home or self-care (01) ==
LOC: HO.LAB 10:27
PROVIDERS: Visit Provider Internal Medicine
DX: Z20.822 Contact with and (suspected) exposure to COVID-19 (principal)
CPT/HCPCS: 87635; C9803

== ENCOUNTER → 2021-11-01 09:19 | Outpatient (BNVA) | payer OTHER, SELFPAY | PROVIDERS: PCP Internal Medicine; Referring Provider Internal Medicine; Visit Provider Nurse Practitioner | DX: K59.04 Chronic idiopathic constipation (principal); K27.9 Peptic ulcer, site unspecified, unspecified as acute or chronic, without hemorrhage or perforation; A04.8 Other specified bacterial intestinal infections; B96.81 Helicobacter pylori [H. pylori] as the cause of diseases classified elsewhere; R10.13 Epigastric pain | CPT/HCPCS: 99212 ==

== ENCOUNTER 2021-12-09 09:42 | Outpatient (REF) | payer OTHER, SELFPAY ==
[2021-12-11 11:34] LABS: H Pylori Breath Test Positive (Negative)
== END 2021-12-09 09:43 | disposition home or self-care (01) ==
LOC: HO.LNP 09:42
PROVIDERS: PCP Internal Medicine; Referring Provider Internal Medicine; Visit Provider Nurse Practitioner
DX: K27.9 Peptic ulcer, site unspecified, unspecified as acute or chronic, without hemorrhage or perforation (principal); B96.81 Helicobacter pylori [H. pylori] as the cause of diseases classified elsewhere; K59.04 Chronic idiopathic constipation; R10.13 Epigastric pain; K21.9 Gastro-esophageal reflux disease without esophagitis; B37.81 Candidal esophagitis; B37.0 Candidal stomatitis
CPT/HCPCS: 83013; 99212

== ENCOUNTER → 2021-12-15 16:20 | Outpatient (BNVA) | payer OTHER, SELFPAY | PROVIDERS: PCP Internal Medicine; Referring Provider Internal Medicine; Visit Provider Nurse Practitioner | DX: Z12.11 Encounter for screening for malignant neoplasm of colon (principal); K21.9 Gastro-esophageal reflux disease without esophagitis; K27.9 Peptic ulcer, site unspecified, unspecified as acute or chronic, without hemorrhage or perforation; R10.13 Epigastric pain; B96.81 Helicobacter pylori [H. pylori] as the cause of diseases classified elsewhere | CPT/HCPCS: 99212 ==

== ENCOUNTER 2022-01-20 09:31 | Outpatient (REF) | payer OTHER, SELFPAY | END 2022-01-20 09:32 | disposition home or self-care (01) | LOC: HO.LNP 09:31 | PROVIDERS: Visit Provider Nurse Practitioner | DX: K27.9 Peptic ulcer, site unspecified, unspecified as acute or chronic, without hemorrhage or perforation (principal); B96.81 Helicobacter pylori [H. pylori] as the cause of diseases classified elsewhere | CPT/HCPCS: 87338 ==

== ENCOUNTER → 2022-04-11 11:53 | Outpatient (BNVA) | payer OTHER, SELFPAY | PROVIDERS: PCP Internal Medicine; Visit Provider Nurse Practitioner | DX: K27.9 Peptic ulcer, site unspecified, unspecified as acute or chronic, without hemorrhage or perforation (principal); B96.81 Helicobacter pylori [H. pylori] as the cause of diseases classified elsewhere; K21.9 Gastro-esophageal reflux disease without esophagitis; K59.04 Chronic idiopathic constipation | CPT/HCPCS: 99212 ==

== ENCOUNTER 2022-04-18 11:22 | Outpatient (REF) | payer OTHER, SELFPAY ==
[2022-04-18 18:33] LABS: CT PCR NOT DETECTED (Not Detect.); NG PCR NOT DETECTED (Not Detect.)
[2022-04-19 13:05] LABS: BV Int Neg Control Negative (Negative); BV Int Pos Control Positive (Positive)
== END 2022-04-18 11:23 | disposition home or self-care (01) ==
LOC: HO.LAB 11:22
PROVIDERS: Visit Provider Advanced Practice Midwife
DX: Z11.3 Encounter for screening for infections with a predominantly sexual mode of transmission (principal); R10.2 Pelvic and perineal pain; B37.3 Candidiasis of vulva and vagina
CPT/HCPCS: 87480; 87491; 87510; 87591; 87660; 99212

== ENCOUNTER 2022-05-16 09:52 | Outpatient (REF) | payer OTHER, SELFPAY ==
--- NOTE | ~2022-05-16 | US_ITS ---
EXAMINATION: US PELVIS CLINICAL INFORMATION: Pelvic and perineal pain. COMPARISON: None. TECHNIQUE: Ultrasound of the pelvis is performed using both transabdominal and transvaginal transducers along with Doppler. Transvaginal imaging is performed due to inadequate visualization transabdominally. FINDINGS: Uterus: The uterus is anteverted and measures 7.0 cm in length, 3.5 mL in AP and 4.0 cm wide. The double wall endometrial thickness is 0.55 cm. There is trace fluid in the endometrial canal The uterus is smooth in contour and has heterogeneous myometrium. There is anechoic cyst in the fundus measuring 0.7 x 0.6 x 0.6 cm, new. There is a hypoechoic lesion in the left mid uterus measuring 0.9 x 0.7 x 1.0 cm. A third lesion is seen in the lower anterior uterus measuring 1.2 x 0.6 x 0.8 cm. It is new. There are small nabothian cysts in the cervix. Some of the cysts are echogenic and complex. Adnexa: Both ovaries are visualized. There is normal color flow to the adnexa. There is no ovarian torsion. There is no pelvic ascites or fluid collection. Right ovary measures 3.2 x 1.5 x 1.7 cm and volume 4.4 mL. There is a 1.6 x 1.4 x 2.3 cm paraovarian anechoic cyst. There are punctate foci seen within the right ovary. Left ovary measures 2.6 x 2.1 x 2.0 cm and volume 5.7 mL. US/US pelvic and transvaginal IMPRESSION: Right paraovarian cyst with punctate foci. Unremarkable left ovary. At least 2 uterine fibroids and a small cyst. Minimal fluid within the endometrial canal. Cannot exclude small cervical myoma. Small nabothian cysts in the cervix.
== END 2022-05-16 09:53 | disposition home or self-care (01) ==
LOC: HO.HMGCX 09:52
PROVIDERS: PCP Internal Medicine; Visit Provider Advanced Practice Midwife
DX: R10.2 Pelvic and perineal pain (principal)
CPT/HCPCS: 76830; 76856

== ENCOUNTER → 2022-06-21 09:14 | Outpatient (REF) | payer OTHER, SELFPAY ==
--- NOTE | 2022-06-21 09:20 | CA_ITS ---
Transthoracic Echocardiogram Patient (Last, First, Middle): Kate Hernandez, Gender: Female Date of : 1975 Age: 46 Procedure Date: 06/21/2022 Procedure Type: Transthoracic Echocardiogram Location: OP Height: 154.94 cm Weight: 77.11 kg BSA: 1.76 m2 Heart Rate: bpm BP: 100 / 70 mmHg Backhoe Operator: TO Referring MD: Irving So MD Cloth Printing Utility Worker: Mic Landrum MD Symptoms: CP, UNSPECIFIED Study Quality: Fair ECG Rhythm: Sinus Conclusions: - Normal study Findings Left Ventricle Normal left ventricular size, thickness, and systolic function. Diastolic function is normal for age. Right Ventricle Normal right ventricular cavity size and systolic function. Atria Both atria are normal in size. Interatrial shunt cannot be excluded. Aortic Valve The aortic valve structure and function is likely normal. There is no aortic valve stenosis. There is no aortic valve regurgitation. Mitral Valve Likely normal mitral valve structure and function. There is trace mitral valve regurgitation. There is no mitral valve stenosis. Pulmonic Valve The pulmonic valve was not well visualized. Tricuspid Valve Likely normal tricuspid valve structure and function. There is trace tricuspid valve regurgitation. The right ventricular systolic pressure is normal. The right ventricular systolic pressure is 22 mmHg. Normal right atrial pressure. There is no evidence of pulmonary hypertension. Great Vessels All visible segments of the aorta are normal in size. The pulmonary artery was not well visualized. Venous The inferior vena cava is normal in size and collapses greater than 50% with inspiration. Pericardium/Pleural There is no evidence of pericardial effusion. Prior Study Comparison No prior study available for comparison. Measurements 2D Linear Measurements IVSd: 0.88 0.6-0.9/0.6-1.0 cm LVIDd: 4.38 3.9-5.3/4.2-5.9 cm LVIDd Index: 2.49 2.4-3.2/2.2-3.1 cm/m2 LVIDs: 2.46 2.0-3.6 cm LVPWd: 0.87 0.7-1.1 cm LA Diam: 2.80 2.7-3.8/3.0-4.0 cm LAIDs Index: 1.59 1.5-2.3 cm/m2 LV Mass: 152.52 67-162/88-224 g LV Mass Index: 86.66 43-95/49-115 g/m2 LVOT Diam: 2.10 3.0+(-)1.3 cm 2D Systolic Function EF 4C: 60.10 >55% EF 2C: 57.10 >55% EF BiP: 58.70 >55% Mitral Valve MV Pk E: 0.57 MV PK A: 0.60 MV Decel Time: 202.00 E/A: 0.90 E'Lateral: 8.92 E'Medial: 11.10 E/E' Med: 5.10 E/E' Lat: 6.40 PHT: 59.00 MVA PHT: 3.73 Decel [place]: 2.82 Aortic Valve AoV Pk Ilir: 1.12 AoV Mn Ilir: 0.82 AoV VTI: 0.22 AoV Pk Grad: 5.00 Aov Mn Grad: 3.00 STAR Cont.VTI: 2.11 LVOT LVOT Pk Ilir: 0.76 LVOT Mn Ilir: 0.51 LVOT VTI: 0.13 LVOT Pk Grad: 2.00 LVOT Mn Grad: 1.00 LVOT Diam: 2.10 LVOT Area: 3.46 Diastolic Function MV Pk E: 0.57 MV Pk A: 0.60 E/A: 0.90 E'Medial: 11.10 E/E' Med: 5.10 E' Laterial: 8.92 E/E' Lat: 6.40 Right Ventricle TAPSE (mm): 25.20 TVS' Ilir: 10.90 Tricuspid Valve TR Pk Ilir: 2.16 TR Pk Grad: 19.00 RA Press: 3.00 RVSP: 22.00 Great Vessels Aorta Sinus of Valsalva: 2.75 2.0-3.[address] [place]: 2.05 1.7-3.4 cm Ao Asc: 2.70 2.1-3.4 cm Updated in Other Vendor System with Status of Final Mic Landrum MD electronically signed on 06/21/2022 12:36:47 PM with status of Final
== END ==
LOC: HO.CARD 09:14
PROVIDERS: PCP Internal Medicine; Visit Provider Internal Medicine
DX: R07.9 Chest pain, unspecified (principal)
CPT/HCPCS: 93306

== ENCOUNTER 2022-08-05 07:50 | Outpatient (REF) | payer OTHER, SELFPAY ==
--- NOTE | ~2022-08-05 | MM_ITS ---
EXAMINATION: MM SCREENING DIGITAL BREAST TOMOSYNTHESIS, BILATERAL CLINICAL INFORMATION: Screening. Asymptomatic. COMPARISON: Mammography: 07/02/2021, 01/04/2019, 04/07/2015 TECHNIQUE: Digital breast tomosynthesis is performed in both the craniocaudal and mediolateral oblique views along with computer-aided detection (CAD). Synthesized 2D images are generated from the tomosynthesis. FINDINGS: The breasts are heterogeneously dense, which may obscure small masses (ACR BI-RADS breast composition Category c). There are no significant masses, abnormal calcifications, or other abnormalities. Parenchymal pattern is similar to prior studies. There is no developing density or architectural abnormality. There is a biopsy clip marker again noted posterior lower inner right breast. The axilla and skin contours are unremarkable. No significant changes. MM/MM tomosynthesis screening BI IMPRESSION: No mammographic evidence of malignancy. ASSESSMENT: BI-RADS 1: Negative RECOMMENDATION: Routine annual mammography screening. This patient's information was entered into a reminder system with a target due date for their next mammogram.
== END 2022-08-05 07:51 | disposition home or self-care (01) ==
LOC: HO.MAMMO 07:50
PROVIDERS: PCP Internal Medicine; Visit Provider Advanced Practice Midwife
DX: Z12.31 Encounter for screening mammogram for malignant neoplasm of breast (principal)
CPT/HCPCS: 77063; 77067

== ENCOUNTER 2022-08-08 10:52 | Day surgery (SDC) | payer OTHER, SELFPAY ==
[2022-08-01 15:41] VITALS: BMI 32.6
[2022-08-01 15:52] VITALS: BMI 32.1
--- NOTE | 2022-08-07 13:20 | HO.ANESPROP2 ---
Documented by User: Brigitte Merlos NP 08/07/22 13:22 HPI - Anesthesia Eval Consult details Narrative: 46yo F for Upper Endoscopy s/p EGD and Leslie 09/2021 with MAC (no PONV noted post procedure) PMFSH Active Problems Active Problems: All Active Problems (Updated 04/18/22 @ 11:37 by Natalie Williamson CNM) Ovarian cyst (Acute) Abnormal uterine bleeding (Acute) Pelvic pain (Acute) Vaginal discharge (Acute) Perimenopause (Acute) Well woman exam with routine gynecological exam (Acute) Decreased libido (Acute) Potential exposure to STD (Acute) Cervical cancer screening (Acute) Obesity (BMI 30.0-34.9) (Acute) Chronic idiopathic constipation (Acute) Depression with anxiety (Acute) Epigastric pain (Acute) SOB (shortness of breath) (Acute) H pylori ulcer (Acute) Candidiasis of mouth and esophagus (Acute) Colon cancer screening (Acute) Pelvic pain (Acute) Yeast infection of the vagina (Acute) GERD (gastroesophageal reflux disease) (Acute) Past Medical History Medical History (Updated 04/18/22 @ 11:37 by Natalie Williamson CNM) Anemia COVID-19 vaccine series completed GERD (gastroesophageal reflux disease) Lab test negative for COVID-19 virus Post-operative nausea and vomiting Vaginal bleeding between periods Wears partial dentures Family History Family history of problems with anesthesia: No Surgical History Surgical History (Updated 08/01/22 @ 15:51 by Kristie Martínez, PATTI) H/O colonoscopy History of esophagogastroduodenoscopy (EGD) History of pubovaginal sling Hx of tubal ligation Status post endometrial ablation History of Problems with Anesthesia: Yes Social History Social History (Updated 08/01/22 @ 15:52 by Kristie Martínez, RN) Are you a primary field care manager to a significant other at home: No Do you presently have visiting nurse or other home services: No Alcohol intake: never Patient Tobacco Use Status: Never used Tobacco Use of substances other than those prescribed or required for medical reasons: Yes Substance Use Type: Marijuana Substance Use Frequency: Daily Are you DNR?: No Advance Directives: No Advance Directives Information Provided: Yes Advance Directives on File: No Recently lost weight without trying: No Patient : No FDLMP: 08/2020 Gender identity: Female Meds Allergies Allergy/AdvReac Type Severity Reaction Status Date / Time No Known Allergies Allergy Verified 04/18/22 10:17 Exam Exam Date and Time: August 07, 2022 1320 Height,Weight and Vital Signs: Height 5 ft 1 in Weight 77.111 kg Narrative Narrative: ECHO 05/2022 Conclusions: - Normal study ? ?? Assessment and Plan Assessment Anesthesia Assessment: Chart Reviewed Final Anesthetic Review Family History of Problems with Anesthesia: No History of Problems with Anesthesia: Yes Documented by User: Saritha Salinas MD 08/08/22 12:30 [facility] Past Medical History Medical History (Updated 04/18/22 @ 11:37 by Natalie Williamson CNM) Anemia COVID-19 vaccine series completed GERD (gastroesophageal reflux disease) Lab test negative for COVID-19 virus Post-operative nausea and vomiting Vaginal bleeding between periods Wears partial dentures Surgical History Surgical History (Updated 08/01/22 @ 15:51 by Kristie Martínez RN) H/O colonoscopy History of esophagogastroduodenoscopy (EGD) History of pubovaginal sling Hx of tubal ligation Status post endometrial ablation History of Problems with Anesthesia: No Social History Social History (Updated 08/01/22 @ 15:52 by Kristie Martínez RN) Are you a primary field care manager to a significant other at home: No Do you presently have visiting nurse or other home services: No Alcohol intake: never Patient Tobacco Use Status: Never used Tobacco Use of substances other than those prescribed or required for medical reasons: Yes Substance Use Type: Marijuana Substance Use Frequency: Daily Are you DNR?: No Advance Directives: No Advance Directives Information Provided: Yes Advance Directives on File: No Recently lost weight without trying: No Patient : No FDLMP: 08/2020 Gender identity: Female Meds Allergies Allergy/AdvReac Type Severity Reaction Status Date / Time No Known Allergies Allergy Verified 04/18/22 10:17 Exam Airway Mallampati Class: II TM Dist: >3cm Neck ROM: Full Partial: Upper Heart: rrr Lungs: cta Assessment and Plan Assessment Anesthesia Assessment: Anesthesia Plan Discussed Final Anesthetic Review History of Problems with Anesthesia: No NPO: Yes ASA Class: II Final Preanesthetic Review: No Changes in Pt Med Stat, Meds/Allgs Chart Reviewed and Consent Obtained/Reviewed Patient Risk: Intermediate Procedure Risk: Intermediate Anesthetic Plan Anesthetic Plan: MAC: Disposition: Standard PACU
--- NOTE | 2022-08-08 11:41 | MHC.SHP ---
Pre-Procedural Eval Section A Date of Service: 08/08/22 Section B Chief Complaint: peptic ulcer,h.Pylori,constipation Relevant Family History (Specify if Yes): No Relevant Social History: None Present Medications: see Short Stay Collaborative assessment Medical History: Significant History (Anemia COVID-19 vaccine series completed GERD (gastroesophageal reflux disease) Lab test negative for COVID-19 virus Post-operative nausea and vomiting Vaginal bleeding between periods Wears partial dentures) History of Previous Operations: Relevant previous surgery/procedure and date(s) (H/O colonoscopy History of esophagogastroduodenoscopy (EGD) History of pubovaginal sling Hx of tubal ligation Status post endometrial ablation) Allergies: Allergies Allergy/AdvReac Type Severity Reaction Status Date / Time No Known Allergies Allergy Verified 04/18/22 10:17 Review of Systems Sugical H&P ROS: Negative: Constitution, Cardiovascular, Respiratory, Neurological, Psychiatric, Hem-Onc, Allergic/Immunologic, Gastrointestinal, Genitourinary, Musculoskeletal, Integumentary, Endocrine and Eyes/Ears/Nose/Throat Exam Surgical H&P Exam: Normal: HEENT, Normal: Heart, Normal: Lungs, Normal: Extremities, Normal: Abdomen, Normal: Skin and Normal: Neurological Plan Diagnosis/Plan: Unchanged I have reviewed the history and physical and performed a pertinent physical examination on my patient. No changes have occurred unless specified.
[2022-08-08 12:19] VITALS: BP 123/84; PULSE 75; RESP 18; TEMP 36.8; O2SAT 99
--- NOTE | 2022-08-08 12:23 | W.PM.OPN ---
Operative Note Operative Note Date of Service: 08/08/22 Narrative: Procedure Description: EGD Indication: hx of h pylori, ongoing abdominal pain Anesthesia: MAC FLEXIBLE TRANSORAL UPPER GASTROINTESTINAL ENDOSCOPY UPPER ENDOSCOPY Consent: Indications for the procedure and potential complications of bleeding, perforation, reaction to medications and missed diagnosis were discussed with the patient and informed consent was obtained. Instrument: Olympus GIF H 190 J mid size upper endoscope Monitoring: Vital signs and clinical assessment, continuous EKG monitoring, Pulse oximetry, Carbon Dioxide monitoring and blood pressure monitoring were done throughout the procedure. Procedure: The patient was placed in the left lateral decubitis position and pre-procedure medications were administered and a bite block was placed. The endoscope was inserted into the mouth and advanced under direct vision to the third part of duodenum. A careful inspection was made as the upper endoscope was withdrawn including a retroflexed examination of the proximal stomach; Findings and interventions are described below. Findings: Larynx:normal Esophagus: GE junction at 38 cm, diaphragm hiatus at 38 cm, irregular Z line with bogginess and erythema, bx taken from distal esophagus and GEJ Stomach: Patchy gastric erythema. Biopsies were obtained. Grade 2 flap valve on retroflexed examination of the cardia. Reduced gastric motility noted. Duodenum: Normal bulb and descending duodenum, bx taken Intervention: Biopsies as noted above Impression/Findings: gastritis esophagitis possible gastroparesis PLAN: await bx results if ongoing sx then consider GES.
[2022-08-08] MEDS: Lactated Ringers 1,000 ML 100 ML IVCONT (12:29)
[2022-08-08 13:02] VITALS: BP 93/63; PULSE 92; RESP 16; TEMP 36.2; O2SAT 97
[2022-08-08 13:17] VITALS: BP 104/56; PULSE 77; RESP 16; O2SAT 98
[2022-08-08] MEDS: ondansetron HCL 4 MG/2 ML VIAL IVPUSH (13:30)
[2022-08-08 13:32] VITALS: BP 124/74; PULSE 82; RESP 16; TEMP 36.6; O2SAT 99
== END 2022-08-08 14:16 | disposition home or self-care (01) ==
PROVIDERS: PCP Internal Medicine; Visit Provider Internal Medicine Gastroenterology
PROC: 0DJ08ZZ Inspection of Upper Intestinal Tract, Via Natural or Artificial Opening Endoscopic (ICD-10-PCS; CPT 43235; principal; 2022-08-08 12:40)
DX: K27.9 Peptic ulcer, site unspecified, unspecified as acute or chronic, without hemorrhage or perforation (principal); Z86.19 Personal history of other infectious and parasitic diseases; K59.04 Chronic idiopathic constipation; K29.50 Unspecified chronic gastritis without bleeding; K21.9 Gastro-esophageal reflux disease without esophagitis; K20.80 Other esophagitis without bleeding; K20.90 Esophagitis, unspecified without bleeding; K44.9 Diaphragmatic hernia without obstruction or gangrene
CPT/HCPCS: 43239; 88305; 88342; J2405

== ENCOUNTER 2022-08-21 11:06 | Outpatient (REF) | payer OTHER, SELFPAY ==
[2022-08-24 11:38] LABS: HPV mRNA E6/E7 rflx Not Detected (Not Detected)
== END 2022-08-21 11:07 | disposition home or self-care (01) ==
LOC: HO.LNP 11:06
PROVIDERS: Visit Provider Advanced Practice Midwife
DX: Z01.419 Encounter for gynecological examination (general) (routine) without abnormal findings (principal)
CPT/HCPCS: 87624; 88142

== ENCOUNTER → 2022-08-22 09:45 | Outpatient (BNVA) | payer OTHER, SELFPAY | PROVIDERS: PCP Internal Medicine; Visit Provider Nurse Practitioner | DX: K27.9 Peptic ulcer, site unspecified, unspecified as acute or chronic, without hemorrhage or perforation (principal); B96.81 Helicobacter pylori [H. pylori] as the cause of diseases classified elsewhere; K59.04 Chronic idiopathic constipation; R10.13 Epigastric pain; K21.9 Gastro-esophageal reflux disease without esophagitis | CPT/HCPCS: 99212 ==

== ENCOUNTER 2022-08-29 17:28 | Outpatient (REF) | payer OTHER, SELFPAY ==
[2022-08-30 14:47] LABS: H Pylori Breath Test Negative (Negative)
== END 2022-08-29 17:29 | disposition home or self-care (01) ==
LOC: HO.LNP 17:28
PROVIDERS: Visit Provider Internal Medicine Gastroenterology
DX: B96.81 Helicobacter pylori [H. pylori] as the cause of diseases classified elsewhere (principal); K27.9 Peptic ulcer, site unspecified, unspecified as acute or chronic, without hemorrhage or perforation; K59.04 Chronic idiopathic constipation; R10.13 Epigastric pain
CPT/HCPCS: 83013

== ENCOUNTER 2023-01-09 09:02 | Outpatient (REF) | payer OTHER, SELFPAY ==
[2023-01-12 11:25] LABS: H Pylori Breath Test Negative (Negative)
== END 2023-01-09 09:03 | disposition home or self-care (01) ==
LOC: HO.LNP 09:02
PROVIDERS: PCP Internal Medicine; Visit Provider Nurse Practitioner
DX: Z11.2 Encounter for screening for other bacterial diseases (principal)
CPT/HCPCS: 83013; 99211

== ENCOUNTER → 2023-03-01 09:28 | Outpatient (BNVA) | payer OTHER, SELFPAY | PROVIDERS: PCP Internal Medicine; Visit Provider Nurse Practitioner | DX: K21.9 Gastro-esophageal reflux disease without esophagitis (principal) | CPT/HCPCS: 99212 ==

== ENCOUNTER 2023-11-30 08:34 | Outpatient (REF) | payer OTHER, SELFPAY ==
[2023-11-30 16:11] LABS: Alanine Aminotransferase 36 U/L (0-31); Albumin Level 4.3 g/dL (3.5-5.0); Alkaline Phosphatase 88 U/L (39-117); Anion Gap 16 (12-20); Aspartate Amino Transferase 20 U/L (5-31); Bilirubin Total 0.3 mg/dL (0.0-1.0); Blood Urea Nitrogen 12 mg/dL (9-16); Carbon Dioxide 25 mmol/L (22-29); Chloride 103 mmol/L (96-108); Cholesterol 299 mg/dL (<200); Estimated Glomerular Filt Rate > 60; Glucose Random 41 mg/dL (60-115); HDL Cholesterol 42 mg/dL (>40); Potassium 4.4 mmol/L (3.3-5.1); Sodium 140 mmol/L (135-145); Total Protein 8.3 g/dL (6.5-8.0); Triglycerides 434 mg/dL (<150)
== END 2023-11-30 08:35 | disposition home or self-care (01) ==
LOC: HO.CHCLDS 08:34
PROVIDERS: Visit Provider Internal Medicine
DX: E78.2 Mixed hyperlipidemia (principal)
CPT/HCPCS: 36415; 80053; 80061

== ENCOUNTER 2023-12-06 10:24 | Outpatient (REF) | payer OTHER, SELFPAY ==
[2023-12-06 14:19] LABS: MANUAL DIFF FLAG NO
[2023-12-06 14:25] LABS: Basophils Percent Auto 0.5 % (0-2); Eosinophils Absolute Auto 0.1 X10*3/uL (0.0-0.4); Eosinophils Percent Auto 1.2 % (0-4); Hematocrit 40.1 % (37.0-47.0); Hemoglobin 13.2 g/dl (12.0-16.0); Imm Gran Abs Auto 0.03 X10*3/uL (0.00-0.03); Imm Gran Pct Auto 0.4 % (0.0-0.4); Lymphocytes Absolute Auto 2.3 X10*3/uL (1.2-4.9); Lymphocytes Percent Auto 28.5 % (20-40); Mean Corpuscular HGB Conc 32.9 g/dl (31.0-35.0); Mean Corpuscular Hemoglobin 26.7 pg (27.0-33.0); Mean Corpuscular Volume 81.2 fL (80.0-98.0); Mean Platelet Volume 11.7 fL (9.4-12.3); Monocytes Absolute Auto 0.6 X10*3/uL (0.1-1.2); Monocytes Percent Auto 6.8 % (2-11); Neutrophils Percent Auto 62.6 % (45-73); Platelet Count 266 X10*3/uL (160-400); Red Blood Count 4.94 X10*6/uL (4.20-5.50); Red Cell Distribution Width 13.2 % (11.0-16.0)
[2023-12-06 14:34] LABS: Estimated Average Glucose 108 mg/dL; Hemoglobin A1c % 5.4 % (<6.0)
[2023-12-06 15:14] LABS: TSH reflex Free T4 0.74 uIU/mL (0.32-4.0); Vitamin D 25-OH Total 22.3 ng/mL (>30)
[2023-12-06 15:30] LABS: Vitamin B12 309 pg/mL (200-900)
== END 2023-12-06 10:25 | disposition home or self-care (01) ==
LOC: HO.CHCLDS 10:24
PROVIDERS: Visit Provider Internal Medicine
DX: R53.83 Other fatigue (principal); E16.2 Hypoglycemia, unspecified; N95.1 Menopausal and female climacteric states
CPT/HCPCS: 36415; 82306; 82607; 82746; 83036; 84443; 85025

== ENCOUNTER 2023-12-17 09:23 | Outpatient (REF) | payer OTHER, SELFPAY ==
[2023-12-19 14:13] LABS: H Pylori Breath Test Negative (Negative)
== END 2023-12-17 09:24 | disposition home or self-care (01) ==
LOC: HO.LNP 09:23
PROVIDERS: PCP Internal Medicine; Visit Provider Nurse Practitioner
DX: Z11.0 Encounter for screening for intestinal infectious diseases (principal)
CPT/HCPCS: 83013; 99211

== ENCOUNTER 2023-12-29 10:22 | Outpatient (REF) | payer OTHER, SELFPAY | END 2023-12-29 10:23 | disposition home or self-care (01) | LOC: HO.MAMMO 10:22 | PROVIDERS: PCP Internal Medicine; Visit Provider Internal Medicine | DX: Z12.31 Encounter for screening mammogram for malignant neoplasm of breast (principal) | CPT/HCPCS: 77063; 77067 ==

== ENCOUNTER → 2023-12-29 10:30 | Outpatient (BNV) | payer OTHER, SELFPAY | PROVIDERS: PCP Internal Medicine; Visit Provider Radiology Diagnostic Radiology | DX: Z12.31 Encounter for screening mammogram for malignant neoplasm of breast (principal) | CPT/HCPCS: 77063; 77067 ==

== ENCOUNTER 2024-01-11 12:50 | Outpatient (REF) | payer OTHER, SELFPAY ==
--- NOTE | ~2024-01-11 | US_ITS ---
EXAMINATION: US PELVIS CLINICAL INFORMATION: Chronic pelvic pain; the last menstrual period was on 09/02/2020. COMPARISON: Pelvic ultrasound dated 05/16/2022. TECHNIQUE: Ultrasound of the pelvis is performed using both transabdominal and transvaginal transducers along with Doppler. Transvaginal imaging is performed due to inadequate visualization transabdominally. FINDINGS: Uterus: The uterus is anteverted and retroflexed. The uterus measures 6.4 x 3.0 x 3.9 cm. Simple nabothian cyst are again seen within the cervix. Within the cervix, a 5 x 3 x 5 mm hypoechoic, circumscribed lesion is seen, which may represent a complex nabothian cyst. This shows no associated color Doppler flow or change in through sound transmission. The double wall endometrial thickness is 3 mm. The uterus is smooth in contour and has normal myometrial echogenicity. No visible fibroid. Adnexa: Both ovaries are visualized. There is normal color flow to the adnexa. There is no ovarian torsion. There is no pelvic ascites or fluid collection. Right ovary measures 2.5 x 1.5 x 1.6 cm, volume 4.4 mL. A 2.0 x 1.3 x 1.4 cm exophytic simple cyst is seen, which requires no imaging follow-up. Again, there are punctate calcifications. Left ovary measures 2.9 x 1.5 x 1.4 cm, volume 3.2 mL. US/US pelvic and transvaginal IMPRESSION: 1. A benign, simple right ovarian cyst is seen, which requires no imaging follow-up. 2. Again, there are punctate foci within the right ovarian parenchyma, likely psammomatous calcifications or calcifications related to prior inflammation or infection. 3. Nabothian cysts are seen within the cervix. A 5 mm hypoechoic, circumscribed lesion within the cervix may represent a complex nabothian cyst. Gynecology evaluation management is recommended, including correlation with the patient's most recent Pap smear.
== END 2024-01-11 12:51 | disposition home or self-care (01) ==
LOC: HO.US 12:50
PROVIDERS: PCP Internal Medicine; Visit Provider Internal Medicine
DX: R10.2 Pelvic and perineal pain (principal)
CPT/HCPCS: 76830; 76856

== ENCOUNTER 2024-04-25 09:37 | Outpatient (REF) | payer OTHER, SELFPAY ==
[2024-04-26 09:15] LABS: Bacterial Vaginosis PCR NEGATIVE (Negative); Candida Group PCR DETECTED (Not Detect); Candida glab krusei PCR NOT DETECTED (Not Detect); Trichomonas vaginalis PCR NOT DETECTED (Not Detect)
[2024-04-26 09:53] LABS: CT PCR NOT DETECTED (Not Detect.); NG PCR NOT DETECTED (Not Detect.)
== END 2024-04-25 09:38 | disposition home or self-care (01) ==
LOC: HO.LAB 09:37
PROVIDERS: PCP Internal Medicine; Visit Provider Advanced Practice Midwife
DX: N83.209 Unspecified ovarian cyst, unspecified side (principal); R10.2 Pelvic and perineal pain; Z20.2 Contact with and (suspected) exposure to infections with a predominantly sexual mode of transmission; N89.8 Other specified noninflammatory disorders of vagina; Z98.890 Other specified postprocedural states; Z87.19 Personal history of other diseases of the digestive system
CPT/HCPCS: 0352U; 87086; 87491; 87591; 99212

== ENCOUNTER 2024-04-25 09:37 | Outpatient (AMB) | payer OTHER, SELFPAY ==
--- NOTE | 2024-04-25 09:42 | A.OFFVIS_ITS ---
Vital Signs 04/25/24 09:43 Height 5 ft 1 in Weight 177 lb BMI 33.4 BP 130/72 Intake Visit Reasons: pelvic pain Typists Supervisor Required: No Information Interpreted: clinical only Group Sales Coordinator: Group Sales Coordinator Present Allergies No Known Allergies Allergy (Verified 04/25/24 09:44) Medication List - Last Reconciled 04/25/24 by Natalie Williamson CNM ascorbate calcium (vitamin C) 500 mg PO DAILY cholecalciferol (vitamin D3) 25 mcg PO DAILY Post menopausal: Yes (2019) HPI HPI pelvic pain: Details: Patient is here because of a longstanding issue with pelvic pain she says it is worse when she walks and other things do not recreate it she does not think she has a UTI but urine was collected she says sometimes the pain meds from her lower abdomen all runs all the way through her flank and up to her back on the right side. She says she had an ultrasound and she talked with her primary care provider but it develops that those were probably months ago but she did not remember when though she later found evidence the ultrasound in her chart that she has reference sing from November or December of this year where she had thought that it was a year ago before She has had lots of issues with gastrointestinal issues and was placed on lots of different medications and has a longstanding history of chronic constipation where she only goes to the bathroom to have a bowel movement about once a week she said nothing worked the MiraLax so she stopped taking everything about a year ago she is only on vitamins now. She is not sexually active she has no concerns about infections at all. Again she does not think she has a UTI she had a colonoscopy sometime ago and she says they took out some polyps that that was all. She also had upper GI issues with H pylori but at some point she stopped the medications for those 2 she has an appointment coming up with Gastroenterology this coming week on Sunday. NOte, she does not get periods since she had ablation with Dr. Fernandes in 2019, however she can tell when she is at her time of menses by the premenstrual symptoms that precede it and breast tenderness. She gets some occasional hot flashes/breaking into sweat. PENDING SALE TO [facility] Medical History COVID-19 vaccine series completed GERD (gastroesophageal reflux disease) Vaginal bleeding between periods Wears partial dentures Post-operative nausea and vomiting Anemia Lab test negative for COVID-19 virus Surgical History History of esophagogastroduodenoscopy (EGD) H/O colonoscopy Status post endometrial ablation Hx of tubal ligation History of pubovaginal sling Family History Mother Breast cancer Colon cancer Maternal Grandmother Breast cancer Colon cancer Social History Are you a primary ambulatory care nurse to a significant other at home: No Do you presently have visiting nurse or other home services: No Alcohol intake: never Patient Tobacco Use Status: Never used Tobacco Substance Use Type: Marijuana Gender identity: Female Female Reproductive History Menstrual Age of Menarche: 6 Duration of menses: <3 days control method: permanent sterilization Total pregnancies: 2 Full term: 2 Date of last pap smear: 08/21/22 (neg pap) Physical Exam Vital Signs: Last Vital Signs BP 130/72 04/25/24 09:43 BMI result Body Mass Index 33.4 Other: External exam within normal limits. Vagina is pink and moist cervix pink smooth healthy appearing cervix is mobile nontender patient does complain of slightly more tenderness in right and left adnexal areas up high. Uterus not enlarged nontender good tone with External Female Exam: normal external appearance Speculum Exam - Vagina: normal appearance of the vagina and normal vaginal discharge Speculum Exam - Cervix: normal appearance of the cervix Bimanual exam- vagina & uterus: normal bimanual exam, uterine size normal, consistency normal, uterine mobility normal, uterine shape normal and non-tender Bimanual Exam- Adnexa, other: normal adnexae, no masses and No adnexal tenderness Results Reviewed Results Reviewed: Patient: Kate Hernandez MR#: [id number] : 1975 Acct:[id number] Age/Sex: 48 / F ADM Date: 01/11/24 Loc: [facility].US Attending Dr: Irving So MD Ordering Physician: Irving Burns MD Date of Service: 01/11/24 Procedure(s): US pelvic and transvaginal Accession Number(s): [id number] cc: Irving Burns MD~ EXAMINATION: US PELVIS CLINICAL INFORMATION: Chronic pelvic pain; the last menstrual period was on 09/02/2020. COMPARISON: Pelvic ultrasound dated 05/16/2022. TECHNIQUE: Ultrasound of the pelvis is performed using both transabdominal and transvaginal transducers along with Doppler. Transvaginal imaging is performed due to inadequate visualization transabdominally. FINDINGS: Uterus: The uterus is anteverted and retroflexed. The uterus measures 6.4 x 3.0 x 3.9 cm. Simple nabothian cyst are again seen within the cervix. Within the cervix, a 5 x 3 x 5 mm hypoechoic, circumscribed lesion is seen, which may represent a complex nabothian cyst. This shows no associated color Doppler flow or change in through sound transmission. The double wall endometrial thickness is 3 mm. The uterus is smooth in contour and has normal myometrial echogenicity. No visible fibroid. Adnexa: Both ovaries are visualized. There is normal color flow to the adnexa. There is no ovarian torsion. There is no pelvic ascites or fluid collection. Right ovary measures 2.5 x 1.5 x 1.6 cm, volume 4.4 mL. A 2.0 x 1.3 x 1.4 cm exophytic simple cyst is seen, which requires no imaging follow-up. Again, there are punctate calcifications. Left ovary measures 2.9 x 1.5 x 1.4 cm, volume 3.2 mL. US/US pelvic and transvaginal IMPRESSION: 1. A benign, simple right ovarian cyst is seen, which requires no imaging follow-up. 2. Again, there are punctate foci within the right ovarian parenchyma, likely psammomatous calcifications or calcifications related to prior inflammation or infection. 3. Nabothian cysts are seen within the cervix. A 5 mm hypoechoic, circumscribed lesion within the cervix may represent a complex nabothian cyst. Gynecology evaluation management is recommended, including correlation with the patient's most recent Pap smear. Dictated By: Ayaan Patino MD Signed By: <Electronically signed by Ayaan Patino MD in OV> 01/16/24 1126 DD/ 1342 TD/TT: Vineyard Worker: SKIP Name: Kate Hernandez Age/Sex: 46/F Attending: Natalie Williamson CNM : 1975 Submitted by: Natalie Williamson CNM Copies to: MR #: [id number] Status: DEP REF Collected: 08/21/22 Location: [facility] Received: 08/21/22 Interpretation Satisfactory for evaluation. Negative for intraepithelial lesion or malignancy. HPV mRNA E6/E7: NOT DETECTED This assay detects E6/E7 viral messenger RNA (mRNA) from 14 high-risk HPV types (16, 18, 31, 33, 35, 39, 45, 51, 52, 56, 58, 59, 66, 68) HPV testing performed by [facility], [place], [place]. See reference laboratory portion of the EMR for entire report. Clinical Information LMP: No menses Previous PAP test: 05/17/21, WNL Material Received ThinPrep-Cervical Electronically Signed By: Ade Amin 09/11/22 1557 The Pap Test is a screening procedure with the inherent possibility of both false negative and false positive results. Results should be interpreted in the context of historic and current clinical findings. Reliability of the Pap Test is enhanced by performing the test on a regular repetitive basis. Patient: Kate Hernandez Age/Sex: 46/F MR#: [id number] Page 1 of 1 Through patient portal we also reviewed together some of her colonoscopy results as well as other lab results and findings Colonoscopy revealed polyps and diverticulosis. Assessment & Plan Assessment & Plan (1) Ovarian cyst: Code(s): N83.209 - Unspecified ovarian cyst, unspecified side Category: Medical (2) Pelvic pain: Code(s): R10.2 - Pelvic and perineal pain Category: Medical (3) Status post endometrial ablation: Comment: 08/2020 Code(s): Z98.890 - Other specified postprocedural states Category: Surgical (4) Hx of constipation: Code(s): Z87.19 - Personal history of other diseases of the digestive system Category: Medical (5) History of diverticulosis: Code(s): Z87.19 - Personal history of other diseases of the digestive system Category: Medical Plan This is a lengthy visit trying to establish the history and symptoms she has been experiencing and her interpretation of labs and findings and results this is complicated by the fact that she had a gap in care because of gap of insurance however she has insurance now and wants to resume figuring out about her pelvic pain. She stopped all of her own GI medications in the last year so because she did not think there were helping she has an appointment to resume care with Gastroenterology she was encouraged to ask all of her questions and explore the issues of constipation and to also inquire as to whether not magnesium might be of any benefit with her gastrointestinal issues in terms of only having a full bowel movement once a week and her diverticulosis, I reviewed with her the challenge that diverticulosis especially in the face of constipation if bacteria and food particles collect in the diverticuli can lead to inflammation and pain known as diverticulitis which can be severe. Recommend doing anything she can to manage this issue in Partnership with GI. In the meantime to explore whether not there is anything public administration professor involved with her pain we will get another ultrasound. The previous 1 showed a nabothian cyst but this is however a normal finding of note I did not visualize any nabothian cyst on her cervix today. Her uterus was nontender and her cervix was nontender with motion. Her symptoms do not sound like a urinary tract infection but because of the origination of pain as being low in her pelvis especially when she moves then radiating through her right flank and up to her right upper back we explored the possibility something with her ureters or kidney stones so we are sending the UA C&S today and we will be looking for presence of large amounts of blood or any other unusual finding. We will have a visit after the ultrasound to try and tease out this challenge some more. Orders: Orders US pelvic and transvaginal Today N83.209 - Unspecified ovarian cyst, unspecified side, R10.2 - Pelvic and perineal pain, Z87.19 - Personal history of other diseases of the digestive system, Z98.890 - Other specified postprocedural states CT NG by PCR Today Z20.2 - Contact with and (suspected) exposure to infections with a predominantly sexual mode of transmission Bacterial Vaginosis Panel Today N89.8 - Other specified noninflammatory disorders of vagina Urine Culture Today R10.2 - Pelvic and perineal pain Coding Level of Care Code Est Pt Level 4 (01910) Complex EM visit Add On G2211 Diagnoses Ovarian cyst N83.209 Pelvic pain R10.2 Status post endometrial ablation Z98.890 Hx of constipation Z87.19 History of diverticulosis Z87.19
[2024-04-25 09:43] VITALS: BP 130/72; BMI 33.4
== END 2024-04-25 10:32 | disposition home or self-care (01) ==
LOC: HO.HWSM 09:37
PROVIDERS: PCP Internal Medicine; Visit Provider Advanced Practice Midwife
DX: N83.209 Unspecified ovarian cyst, unspecified side (principal); R10.2 Pelvic and perineal pain; Z98.890 Other specified postprocedural states; Z87.19 Personal history of other diseases of the digestive system
CPT/HCPCS: 99214; G2211

== ENCOUNTER 2024-04-25 10:31 | Outpatient (REF) | payer OTHER, SELFPAY | END 2024-04-25 10:32 | disposition home or self-care (01) | LOC: HO.LNP 10:31 | PROVIDERS: Visit Provider Advanced Practice Midwife | DX: Z13.89 Encounter for screening for other disorder (principal) ==

== ENCOUNTER 2024-04-29 13:49 | Outpatient (REF) | payer OTHER, SELFPAY ==
--- NOTE | ~2024-04-29 | US_ITS ---
EXAMINATION: US PELVIS CLINICAL INFORMATION: Pelvic pain, lower pelvic pain, ovarian cyst, last menstrual period August 2020, postmenopausal. COMPARISON: 01/11/2024, 05/16/2022. TECHNIQUE: Ultrasound of the pelvis is performed using both transabdominal and transvaginal transducers along with Doppler. Transvaginal imaging is performed due to inadequate visualization transabdominally. FINDINGS: The uterus is anteverted and measures 7.8 x 3.6 x 4.7 cm. No significant free fluid. Trace amount of fluid within the endometrial cavity. Double wall endometrial thickness is 4.4 mm. Right ovary measures 3.0 x 1.9 x 2.8 cm, volume 8.3 mL. 2.3 x 1.4 x 1.6 cm simple, exophytic right ovarian cyst. 2.0 x 1.3 x 1.7 cm simple right ovarian cyst. Previous exam demonstrated a 2.0 x 1.3 x 1.4 cm exophytic right ovarian cyst. There is no specific indication for additional imaging. Left ovary measures 3.5 x 1.9 x 2.2 cm, volume 7.5 mL. Left ovarian 2.3 x 1.2 x 1.2 cm simple cyst. There is no specific indication for additional imaging. Nabothian cysts present. US/US pelvic and transvaginal IMPRESSION: 1. Bilateral ovarian cysts, largest right 2.3 cm. No specific imaging followup recommended. 2. Trace amount of fluid within the endometrial cavity. Double wall endometrial thickness is 4.4 mm. Correlation with menstrual history recommended to determine further management.
== END 2024-04-29 13:50 | disposition home or self-care (01) ==
LOC: HO.HMGCX 13:49
PROVIDERS: PCP Internal Medicine; Visit Provider Advanced Practice Midwife
DX: R10.2 Pelvic and perineal pain (principal); N83.209 Unspecified ovarian cyst, unspecified side; Z98.890 Other specified postprocedural states; Z87.19 Personal history of other diseases of the digestive system
CPT/HCPCS: 76830; 76856

== ENCOUNTER 2024-11-01 12:30 | Emergency (ER) | payer SELFPAY ==
--- NOTE | ~2024-11-01 | XR_ITS ---
CLINICAL HISTORY: wheezing 2 view chest x-ray Comparison: None Findings: The lungs are clear. Heart size is normal. No acute fracture. IMPRESSION: 1. No acute findings. This document has been electronically signed by: Ana Villanueva MD on 11/01/2024 14:39:33
[2024-11-01 12:55] VITALS: BP 148/97; PULSE 101; RESP 18; TEMP 37; O2SAT 99; BMI 31.4
--- NOTE | 2024-11-01 12:56 | ED_ITS ---
HPI - General Adult General Chief complaint: Upper Respiratory Symptoms Stated complaint: sick, knot back of neck, tingling feeling Time Seen by Provider: 11/01/24 14:56 Source: patient Mode of arrival: ambulatory Limitations: no limitations History of Present Illness ED Provider: Amy Pan PA-C HPI narrative: Patient is a 48 year old assigned female at with a history of GERD presenting to the emergency department today with a cough and feeling generally unwell with a back of head headache. Patient states that over the last week she has had cold symptoms including a cough and this morning she began to have a headache in the back of her head. Patient denies any dizziness, lightheadedness, abdominal pain, nausea, vomiting, fever, chills, blurry vision, double vision, loss of vision, chest pain, difficulty breathing, shortness of breath, back pain, night sweats, pain with urination, increased urinary frequency, increased urinary urgency, blood in her urine or stool, syncope or a near syncopal episode, recent trauma or falls, bowel incontinence, bladder incontinence, or any other complaints at this time. Relieving factors: none Exacerbating factors: none Associated symptoms: cough and headaches Treatments prior to arrival: none Related Data Home Medications ?Medication ?Instructions ?Recorded ?Confirmed ascorbate calcium (vitamin C) 500 500 mg PO DAILY 04/25/24 04/25/24 mg tablet cholecalciferol (vitamin D3) 25 25 mcg PO DAILY 04/25/24 04/25/24 mcg (1,000 unit) capsule Allergies Allergy/AdvReac Type Severity Reaction Status Date / Time No Known Allergies Allergy Verified 11/01/24 12:58 Review of Systems 2 Constitutional: Constitutional: Reports no additional constitutional complaints, Denies chills, Denies fever(s), Reports headache(s) and Denies night sweats Eyes: Eyes: Reports no additional eye complaints, Denies blurry vision, Denies change in vision, Denies diplopia, Denies eye discharge, Denies loss of vision and Denies eye pain ENT: Denies dizziness and Reports headache(s) Cardiovascular: Cardiovascular: Reports no additional cardiovascular complaints, Denies chest pain, Denies lightheadedness, Denies Loss of Consciousness and Denies dyspnea Respiratory: Respiratory: Reports no additional respiratory complaints, Reports cough and Denies dyspnea Gastrointestinal: Gastrointestinal: Reports no additional gastrointestinal complaints, Denies abdominal pain, Denies melena, Denies hematochezia, Denies change in bowel habits and Denies change in stool character Genitourinary: Genitourinary: Denies hematuria, Denies urinary frequency, Denies dysuria, Denies urinary incontinence, Denies urinary hesitancy and Denies urinary urgency Musculoskeletal: Musculoskeletal: Reports no additional musculoskeletal complaints, Denies numbness and Denies tingling Neurologic: Denies dizziness, Reports headache(s), Denies loss of vision, Denies numbness and Denies tingling Psychiatric: Psychiatric: Reports no additional psychiatric complaints Endocrine: Endocrine: Reports no additional endocrine complaints Hematologic/Lymphatic: Hematologic/Lymphatic: Reports no additional hematologic/lymphatic complaints Allergic/Immunologic: Allergic/Immunologic: Reports no additional allergic/immunologic complaints PMF Past Medical History Attestation statement: The following information was validated with the patient. Source: old records reviewed and nursing notes reviewed Medical History COVID-19 vaccine series completed GERD (gastroesophageal reflux disease) Vaginal bleeding between periods Wears partial dentures Post-operative nausea and vomiting Anemia Lab test negative for COVID-19 virus Surgical History History of esophagogastroduodenoscopy (EGD) H/O colonoscopy Status post endometrial ablation Hx of tubal ligation History of pubovaginal sling Family History Family History Mother Breast cancer Colon cancer Maternal Grandmother Breast cancer Colon cancer Social History Social History Are you a primary technical healthcare consultant to a significant other at home: No Do you presently have visiting nurse or other home services: No Alcohol intake: never Patient Tobacco Use Status: Never used Tobacco Substance Use Type: Marijuana Advance Directives: No Advance Directives Information Provided: No Gender identity: Female Physical Exam ED Vital Signs: Vital Signs - 24 hr 11/01/24 12:55 11/01/24 15:07 Temperature 98.6 F 98.6 F Pulse Rate 101 H 101 H Respiratory Rate 18 18 Blood Pressure 148/97 H 148/97 H Pulse Oximetry 99 99 Oxygen Delivery Method Room Air Room Air BMI result Body Mass Index 31.4 Const General: cooperative, no acute distress, alert and awake Nutritional Appearance: well nourished Orientation/consciousness: patient oriented x3 Limitations: no limitations HENMT Head: Yes normal to inspection and Yes atraumatic Ears: hearing grossly normal bilaterally and external ears normal General nose exam: Normal external nose present, no nasal discharge noted and no epistaxis Face and sinus: Yes normal facial exam, No abrasion and No laceration Mouth: Normal oral and palatal mucosa present, no drooling and no muffled voice Eyes General: appearance normal, both eyes and all related structures Periorbital: periorbital findings normal Eyelids: Yes eyelids normal Conjunctivae: conjunctivae normal Pupils: Equal, round and reactive pupils present EOM: EOMs intact bilaterally Neck Neck: Yes normal visual inspection, Yes full ROM and Yes no lymphadenopathy Chest Chest palpation & inspection: normal inspection of the chest Resp Effort & Inspection: normal respiratory effort and able to speak in complete sentences GI Inspection: Yes normal to inspection Neuro General: patient oriented x3, moves all extremities and CN's II-XI intact bilaterally Cranial nerves: Yes Equal, round and reactive pupils present Cognition (Neuro): normal cognition Extrem General: Yes normal to inspection, Yes full ROM and Yes capillary refill normal Psych Appearance: grossly normal Mental Status: mental status grossly normal Affect: normal affect Attitude: cooperative Thought process: Normal thought process present Thought content: Normal thought content present Insight: Good insight present (Psych) NIH Stroke Scale Internal: Initial- Upon Arrival Time: 12:55 Level of Consciousness: Alert Level of Consciousness Questions: Answers both questions correctly Level of Consciousness Commands: Performs both tasks correctly Best Gaze: Normal Visual: No visual loss Facial Palsy: Normal Motor Arm (Right): No drift Motor Arm (Left): No drift Motor Leg (Right): No drift Motor Leg (Left): No drift Limb Ataxia: Absent Sensory: Normal Best Language: No aphasia Dysarthia: Normal Extinction and Inattention: No abnormality Score: 0 Course Course Course Narrative: RME performed by Amy Pan PA-C. Patient is a 48 year old assigned female at presenting to the emergency department with upper neck pain and body aches. Patient states she has been sick over the last week and this morning had pressure in the back of her head that made her feel tingly and she was concerned it was something more serious. No focal deficits. Detailed physical exam and review of systems are deferred to the bus boy. EKG, labs, and swabs ordered. Patient placed back in the waiting room pending room availability and results. Medical Decision Making Medical Decision Making [facility] Narrative: Patient is a 48 year old assigned female at with a history of GERD presenting to the emergency department today with a cough and a headache. Patient's physical exam was unremarkable. Patient's blood work was unremarkable. Patient's EKG was unremarkable. Patient's chest x-ray showed no acute process. Patient's influenza test was positive. I explained my physical exam findings as well as all test results to the patient. I answered all questions asked by the patient. I stressed the importance of the patient taking her medication as directed (either prescribed or as the over the counter packaging recommends). I stressed the importance of the patient following up with her primary care provider. I stressed the importance of the patient returning to the emergency department immediately if her symptoms were to worsen or if she were to develop any dizziness, shortness of breath, difficulty breathing, chest pain, blurry vision, loss of vision, nausea, vomiting, abdominal pain, fever, chills, back pain, or any other complaints. Patient verbalized agreement and understanding with this treatment plan and discharge. Differential Diagnosis Differential Diagnoses: The differential diagnosis associated with the presentation includes Influenza COVID-19 RSV Viral illness PNA Admission/Observation Consideration of admission/observation: Escalation of care including admission/observation considered Patient would have been admitted to the hospital had her work up had any findings where hospital admission was appropriate and her clinical presentation warranted hospital admission. Lab Data [facility] Lab Attestation statement: I reviewed the patient's lab results. My interpretation of these results are in the [facility] Rationale portion of this note. 11/01/24 13:21 11/01/24 13:21 Labs: Lab Results 11/01/24 Range/Units 13:21 WBC 3.5 L (4.8-10.8) X10*3/uL RBC 5.36 (4.20-5.50) X10*6/uL Hgb 14.8 (12.0-16.0) g/dl Hct 41.8 (37.0-47.0) % MCV 78.0 L (80.0-98.0) fL MCH 27.6 (27.0-33.0) pg MCHC 35.4 H (31.0-35.0) g/dl RDW 13.2 (11.0-16.0) % Plt Count 195 D (160-400) X10*3/uL MPV 11.6 (9.4-12.3) fL Immature Gran % (Auto) 0.0 (0.0-0.4) % Neut % (Auto) 38.1 L (45-73) % Lymph % (Auto) 48.0 H (20-40) % [place] % (Auto) 13.3 H (2-11) % Eos % (Auto) 0.3 (0-4) % Baso % (Auto) 0.3 (0-2) % Lymph # (Auto) 1.7 (1.2-4.9) X10*3/uL [place] # (Auto) 0.5 (0.1-1.2) X10*3/uL Eos # (Auto) 0.0 (0.0-0.4) X10*3/uL Baso # (Auto) 0.0 (0.0-0.2) X10*3/uL Abs Immat Gran (auto) 0.00 (0.00-0.03) X10*3/uL Absolute Neuts (auto) 1.3 L (2.0-8.3) x10*3/uL Absolute Nucleated RBC 0.000 (0.0-0.012) X10*3/uL Nucleated RBC % (auto) 0.0 (0.0-0.2) /100WBC Sodium 138 (135-145) mmol/L Potassium 4.1 (3.3-5.1) mmol/L Chloride 105 (96-108) mmol/L Carbon Dioxide 21 L (22-29) mmol/L Anion Gap 16 (12-20) BUN 11 (9-16) mg/dL Creatinine 0.79 (0.5-1.4) mg/dL Estim Creat Clear Calc 79.1 Estimated GFR > 60 Random Glucose 102 (60-115) mg/dL Calcium 9.7 (8.4-10.2) mg/dL Magnesium 2.3 (1.6-2.6) mg/dL Total Bilirubin 0.4 (0.0-1.0) mg/dL AST 98 H (5-31) U/L ALT 118 H (0-31) U/L Alkaline Phosphatase 76 (39-117) U/L Troponin I High Sens < 2.7 (<3.5-17.0) ng/L Total Protein 9.3 H (6.5-8.0) g/dL Albumin 4.5 (3.5-5.0) g/dL Influenza Type A (PCR) POSITIVE A (Negative) Influenza Type B (PCR) NEGATIVE (Negative) RSV RNA Qual (PCR) NEGATIVE (Negative) SARS-CoV-2 RNA (RT-PCR) NEGATIVE (Negative) Independent Interpretation I performed an independent interpretation of an: EKG and Plain X-Ray Interpretation: My interpretation is in agreement with the radiologist's impression of this imaging study. L CLINICAL HISTORY: wheezing 2 view chest x-ray Comparison: None Findings: The lungs are clear. Heart size is normal. No acute fracture. IMPRESSION: 1. No acute findings. This document has been electronically signed by: Ana Villanueva MD on 11/01/2024 14:39:33 Dictated By: Ana Villanueva MD Signed By: Electronically signed by Ana Villanueva MD 11/01/24 1440 Vent. Rate: 100 BPM Atrial Rate: 100 BPM P-R Int: 128 ms QRS Dur: 86 ms QT Int: 362 ms P-R-T Axes: 47 53 44 degrees QTcB Int: 466 ms Normal sinus rhythm Nonspecific T wave abnormality No previous ECGs available DD/ 1306 Radiology Impression Discussion of test interpretation with radiology: I have reviewed the radiologist's reading. Discharge Plan Discharge Clinical Impression: Influenza Patient Disposition: Home, Self-Care Instructions: Influenza (DC) Additional Instructions: Follow up with your primary care provider. Return to the emergency department immediately if your symptoms worsen or if you develop any dizziness, shortness of breath, difficulty breathing, chest pain, blurry vision, loss of vision, nausea, vomiting, abdominal pain, fever, chills, back pain, or any other complaints. Prescriptions: No Action ascorbate calcium (vitamin C) 500 mg tablet 500 mg PO DAILY cholecalciferol (vitamin D3) 25 mcg (1,000 unit) capsule 25 mcg PO DAILY Referrals: Irving Burns MD [Primary Care Provider] - Stand Alone Forms: Work/School Release Interventions: ED Discharge Assessment Last Done: 11/01/24 15:07 Discharge Date/Time: 11/01/24 15:08 Print Language: German
--- NOTE | 2024-11-01 12:57 | ECG_ITS ---
Test Reason : WEAKNESS Blood Pressure : */* mmHG Vent. Rate : 100 BPM Atrial Rate : 100 BPM P-R Int : 128 ms QRS Dur : 86 ms QT Int : 362 ms P-R-T Axes : 47 53 44 degrees QTcB Int : 466 ms Normal sinus rhythm Nonspecific T wave abnormality Prolonged QT Abnormal ECG No previous ECGs available Referred By: Amy Pan Electronically Signed By: Jj Fishman
[2024-11-01 13:29] LABS: MANUAL DIFF FLAG NO
[2024-11-01 13:30] LABS: Basophils Percent Auto 0.3 % (0-2); Eosinophils Percent Auto 0.3 % (0-4); Hematocrit 41.8 % (37.0-47.0); Hemoglobin 14.8 g/dl (12.0-16.0); Lymphocytes Absolute Auto 1.7 X10*3/uL (1.2-4.9); Mean Corpuscular HGB Conc 35.4 g/dl (31.0-35.0); Mean Corpuscular Hemoglobin 27.6 pg (27.0-33.0); Mean Platelet Volume 11.6 fL (9.4-12.3); Monocytes Absolute Auto 0.5 X10*3/uL (0.1-1.2); Monocytes Percent Auto 13.3 % (2-11); Neutrophils Absolute Auto 1.3 x10*3/uL (2.0-8.3); Neutrophils Percent Auto 38.1 % (45-73); Platelet Count 195 X10*3/uL (160-400); Red Blood Count 5.36 X10*6/uL (4.20-5.50); Red Cell Distribution Width 13.2 % (11.0-16.0); White Blood Count 3.5 X10*3/uL (4.8-10.8)
[2024-11-01 13:47] LABS: Alanine Aminotransferase 118 U/L (0-31); Albumin Level 4.5 g/dL (3.5-5.0); Alkaline Phosphatase 76 U/L (39-117); Anion Gap 16 (12-20); Aspartate Amino Transferase 98 U/L (5-31); Bilirubin Total 0.4 mg/dL (0.0-1.0); Blood Urea Nitrogen 11 mg/dL (9-16); Calcium 9.7 mg/dL (8.4-10.2); Carbon Dioxide 21 mmol/L (22-29); Chloride 105 mmol/L (96-108); Creatinine Clr Calc Pharmacy 79.1; Estimated Glomerular Filt Rate > 60; Glucose Random 102 mg/dL (60-115); Magnesium 2.3 mg/dL (1.6-2.6); Potassium 4.1 mmol/L (3.3-5.1); Sodium 138 mmol/L (135-145); Total Protein 9.3 g/dL (6.5-8.0)
[2024-11-01 13:53] LABS: Troponin-I High Sensitivity < 2.7 ng/L (<3.5-17.0)
[2024-11-01 14:08] LABS: Influenza A PCR POSITIVE (Negative); Influenza B PCR NEGATIVE (Negative); Resp Syncy Virus RNA Qual PCR NEGATIVE (Negative); SARS COV2 PCR INHOUSE NEGATIVE (Negative)
[2024-11-01 15:07] VITALS: BP 148/97; PULSE 101; RESP 18; TEMP 37; O2SAT 99
--- OUTSIDE RECORDS SUMMARY | 2024-11-01 15:09 | XMS_ITS | Encounter Summary ---
Author Organization [employer] Address [address] [place] [address] Care Team Providers Care Interventional Technologist Name Role Phone Irving Burns MD Primary Care Prov ider Reason for Visit * Reason Onset Date Comments Lab Orders 11/19/2023 Encounter Details Date Type Department Care Team ([facility] Contact Info) Description 11/19/2023 Telephone [facility] [address] [place] [address] Irving Burns MD [address] [place] [address] Lab Orders Social History Tobacco Use Types Packs/Day Years Used Date Smoking Tobacco: Never Smokeless Tobacco: Never Alcohol Use Standard Drinks/Week Comments Never 0 (1 standard drink = 0.6 oz pur e alcohol) Depression Answer Date Recorded Patient Health Questionnaire-9 Score 23 01/26/2023 Housing Stability Answer Date Recorded What is your housing situation today? I have edith hicks 07/11/[address] you li ve. Do you have problems with any of the following? None of the above 07/11/2023 Food Insecurity Answer Date Recorded Within the past 12 months, y ou worried that your food would run out before you got money to buy more: Never True 07/11/2023 Within the past 12 months,th e food you bought just didn't last and you didn't have enough money to get more: Never True Transportation Answer Date Recorded In the past 12 months, has l ack of transportation kept you from medical appts, meetings, work or from getting things needed for daily living? No 07/11/2023 Utilities Answer Date Recorded In the past 12 months, has t he electric, gas, oil or water company threatened to shut off services in your home? No 07/11/2023 Depression Answer Date Recorded Patient Health Questionnaire-2 Score 5 01/26/2023 Comments No Sex and Gender Information Value Date Recorded Sex Assigned at Female 07/24/2022 10:14 AM EDT Legal Sex Female 10:14 AM EDT Gender Identity Female 07/24/2022 10:14 AM EDT Sexual Orientation Straight 07/24/2022 10 :14 AM EDT documented as of this encounter Miscellaneous Notes * Telephone Encounter - Sara Manriquez RN - 11/27/2023 1:26 PM EST Placed call to pt to inform of lab orders sent to lab. Pt is requesting LH, FSH and prolactin labs as well as pt is c/o menopause symptoms and wants to check. Pt informed message would be sent to PCPfor review. * Telephone Encounter - Klaus Hernandez - 11/19/2023 10:37 AM EST Tc from pt requesting blood work. Pt stated she was supposed to get blood work done sometime last year but was having an insurance issue at the time. Pt also denied any concerns. Please contact pt at [phone]. documented in this encounter Plan of Treatment Not on file documented as of this encounter Visit Diagnoses Not on filedocumented in this encounter Additional Health Concerns Assessment Noted Time PHQ-9 Depression Total Score: 23 023 9:37 AM EDT documented as of this encounter Care Teams Interventional Technologist Relationship Specialty Start Date End Date Irving Burns MD [address] [place] [id number] PCP - General Internal Medicine 02/13/20 documented as of this encounter
--- OUTSIDE RECORDS SUMMARY | 2024-11-01 15:09 | XMS_ITS | Clinical Summary ---
Author Organization [employer] Address [address] [facility] [address] [place] [address] Care Team Providers Care Paint Tester Name Role Phone Irving Burns MD Primary Care Prov ider Allergies No known active allergies Medications * This document contains information received from the source organization and may not represent a complete record from that organization. ibuprofen 800 MG tablet Take 1 tablet by mouth every 8 (eight) hours. Take 1 tablet by mouth 3 times every day with food Active ferrous sulfate 325 (65 Fe) MG tablet take 1 tablet by oral route every other day 1 Active hydrOXYzine HCl (Atarax) 25 MG tablet Take 1 tablet by mouth if needed in the morning and at bedtime. Take 1 tablet by mouth 2 times every day as needed 1 Active b complex vitamins capsuleIndicati ons:Other fatigue Take 1 capsule by mouth in the morning. 30 capsule 11 4 12/07/19 25 Active B-Complex, Folic Acid, tablet Take 1 tablet by mouth in the morning. 4 Active chlorhexidine (Peridex) 0.12 % solution Swish 15 mL morning and night for 1 minute. Spit, do not swallow. Do not eat or drink for 30 minutes following use. 473 mL 4 Active atorvastatin (Lipitor) 20 MG tablet Take 1 tablet (20 mg) by mouth Once per day. 30 tablet 11 4 06/20/20 25 Active cholecalciferol (Vitamin D-3) 25 MCG (1000 UT) tabletIndicatio ns:Vitamin D deficiency Take 1 tablet (25 mcg) by mouth Once per day. 30 tablet 11 4 06/10/20 26 Active Active Problems Problem Noted Date Diagnosed Date Vitamin D deficiency 06/24/2024 Assessment & Plan (06/24/2024 9:51 AM EDT): On oral vitamin d replacement, new labs will be ordered for guidance Depression, unspecified 01/31/2023 Panic disorder 01/31/2023 Hot flashes 01/02/2023 Assessment & Plan (01/02/2023 4:06 PM EDT): Will order blood work to evaluate for menopause History of iron deficiency 08/30/2022 Assessment & Plan (01/02/2023 4:07 PM EDT): Labs ordered previously not done, she will get them this week, will call with results Assessment & Plan (08/30/2022 12:44 PM EST): Will place order for cbc/iron to evaluate current status Hyperlipidemia 02/04/2019 Assessment & Plan (06/24/2024 9:50 AM EDT): On atorvastatin 20mg, new labs ordered for guidance of therapy, follow up in 4 months Assessment & Plan (01/17/2023 11:26 AM EDT): Ascvd >5%, will start on atorvastatin 20mg, reviewed side effect, follow up in 2 months to repeat labs and med adjustment if needed. Assessment & Plan (01/02/2023 4:07 PM EDT): New labs ordered for guidance Mood disorder 02/04/2019 Assessment & Plan (01/02/2023 4:07 PM EDT): Will refer to behavioral team for evaluation, no suicidal/homicidal ideas Assessment & Plan (08/30/2022 12:41 PM EST): No suicidal/homicdal ideas, not taking hydroxyzine, Seasonal allergies 02/04/2019 Assessment & Plan (08/30/2022 12:40 PM EST): On Loratadine, no changes will be made Family history of breast cancer 02/04/2019 Family history of colon cancer 02/04/2019 Encounters Date Type Department Care Team Description 11/01/2024 Orders Only GENERIC EXTERNAL DATA DEPARTMENT Provider, Generic External Data from Last 3 Months Immunizations Name Administration Dates Next Due Influenza injectable quadriv alent IIV4 with preservative 06/27/2016 Influenza injectable quadriv alent preservative free 07/19/2015 Influenza, IIV3, injectable 07/20/2014 Influenza, Split (incl. kayla fied surface antigen) 07/30/2012 Moderna Covid-19 Vaccine 12+ 12/14/2021,02/15/20 21,01/17/2021 Tdap 07/30/2012 Family History Medical History Relation Name Comments No Known Problems Father Breast cancer Maternal Grandmother Diabetes Maternal Grandmother Colon cancer Mother Diabetes Mother Hypertension Mother Relation Name Status Comments Father Maternal Grandmother Mother Social History Tobacco Use Types Packs/Day Years Used Date Smoking Tobacco: Never Smokeless Tobacco: Never Alcohol Use Standard Drinks/Week Comments Never 0 (1 standard drink = 0.6 oz pur e alcohol) Depression Answer Date Recorded Patient Health Questionnaire-9 Score 0 06/20/2024 Patient Health Questionnaire-9 Score 0 06/20/2024 Last PHQ-9: Questionnaire Data Not on file 0 06/20/2024 Housing Stability Answer Date Recorded What is your housing situation today? I have edithtara hicks 07/11/[address] you [...] Answer Date Recorded Patient Health Questionnaire-2 Score 0 06/20/2024 Comments No Sex and Gender Information Value Date Recorded Sex Assigned at Female 07/24/2022 10:14 AM EDT Legal Sex Female 10:14 AM EDT Gender Identity Female 07/24/2022 10:14 AM EDT Sexual Orientation Straight 07/24/2022 10 :14 AM EDT Last Filed Vital Signs Vital Sign Reading Time Taken Comments Blood Pressure 122/60 05/02/2024 11:17 AM EDT Pulse 65 02/07/2024 9:51 AM EDT Temperature 35.5 ??C (95.9 ??F) 01/02/2024 10:22 AM E DT Respiratory Rate 20 01/02/2024 10:22 AM EDT Oxygen Saturation 98% 01/02/2024 10:22 AM EDT Inhaled Oxygen Concentration - - Weight 78 kg (172 lb) 01/02/2024 10:22 AM EDT Height 154.9 cm (5' 1 ) 01/02/2024 10:22 AM EDT Body Mass Index 32.5 01/02/2024 10:22 AM EDT Plan of Treatment Health Maintenance Due Date Last Done Comments CT Colonography 1973 FIT DNA/Cologuard 1973 FIT 1975 FOBT 1975 Sigmoidoscopy 1973 Alcohol/Substance Use Screening 1985 Family Planning (PISQ) 1988 Hepatitis B Vaccines (1 of 3 - 19+ 3-dose series) 1992 DTaP/Tdap/Td Vaccines (2 - Td or Tdap) 07/30/2022 07/30/2012 Pneumococcal Vaccine: 50+ Years (1 of 1 - PCV) 11/30/2023 Zoster Vaccines (1 of 2) 11/30/2023 SDOH Screening 01/03/2024 01/02/2023 Dental X-Ray: Full Mouth 03/19/2024 03/18/2021 COVID-19 Vaccine ( - season) 2024 12/14/2021, 02/14/2021, 01/17/2021 Influenza Vaccine (#1) 2024 6, 07/19/2015, 07/20/2014, Additional history exists Dental Oral Exam 08/10/2024 02/07/2024, , 03/18/2021, Additional history exists Dental Prophylaxis 08/10/2024 02/07/2024, 0 02/06/2019, 09/04/2017, Additional history exists Dental X-Ray: Bitewings 02/07/2025 02/07/20 24, 03/18/2021, 01/29/2019, Additional history exists Depression Screening 06/20/2025 06/20/2024, 06/20/20 Tobacco Screening 07/25/2025 07/25/2024 Mammogram 12/28/2025 12/29/2023, 01/06/2019 Cervical Cancer Screening 08/21/2027 HPV/Cotest 08/21/2027 08/21/2022, 04/25, 05/16/2021 Pap Smear 08/21/2027 08/21/2022, 05/16/2021 Colonoscopy 11/01/2031 11/01/2021 Colorectal Cancer Screening 11/01/2031 RSV Patients and Patients Aged 60 years or older (1 - 1-dose 75+ series) 2048 HIV Screening Completed 01/09/2023, 04/25, 05/16/2021 Hepatitis C Screening Completed 01/09/2023 , 08/12/2021, 05/16/2021 HIB Vaccines Aged Out No longer eligi ble based on patient's age to complete this topic HPV Vaccines Aged Out No longer eligi ble based on patient's age to complete this topic Hepatitis A Vaccines Aged Out No long er eligible based on patient's age to complete this topic IPV Vaccines Aged Out No longer eligi ble based on patient's age to complete this topic Meningococcal Vaccine Aged Out No shaq noreen eligible based on patient's age to complete this topic RSV under 20 months Aged Out No longe r eligible based on patient's age to complete this topic Rotavirus Vaccines Aged Out No longer eligible based on patient's age to complete this topic Procedures Procedure Name Priority Date/Time Associated Diagnosis Comments XR CHEST 2 VIEWS Routine 11/01/2024 2:39 PM EST HIGH SENSITIVITY TROPONIN I Routine 11/01/2024 1:21 PM EST MAGNESIUM Routine 11/01/2024 1:21 PM EST COMPREHENSIVE METABOLIC PANEL Routine 11/01/2024 1:21 PM EST CBC WITH AUTO DIFFERENTIAL Routine 11/01/2024 1:21 PM EST SARS COV2/INFLUENZA A/B AND RSV RNA QL NAAT Routine 11/01/2024 1:21 PM EST Full PROPHYLAXIS - ADULT Routine 02/07/2024 10:00 AM EDT Dental calculus Dental caries BITEWINGS - 3 RADIOGRAPHIC IMAGES Routine 02/07/2024 10:00 AM EDT Dental calculus Dental caries PERIODIC ORAL EVALUATION - ESTABLISHED PATIENT Routine 02/07/2024 10:00 AM EDT Dental calculus Dental caries BI MAMMOGRAM SCREENING TOMOSYNTHESIS BILATERAL Routine 12/29/2023 10:40 AM EDT HEPATITIS C AB W/REFL TO HCV RNA, QN, PCR Routine 01/09/2023 8:35 AM EDT Mixed hyperlipidemia History of iron deficiency Hot flashes HIV 1 RNA, QN PCR W/RFL NUZHAT (RTI,PI,INTEGRASE) Routine 01/09/2023 8:35 AM EDT Mixed hyperlipidemia History of iron deficiency Hot flashes HPV MRNA E6/E7 REFLEX TO HPV 16, 18/45 Routine 08/21/2022 11:06 AM EST PAP SMEAR Routine 08/21/2022 11:06 AM EST HM COLONOSCOPY Routine 11/01/2021 8:29 AM EST DIAGNOSTIC - DIAGNOSTIC IMAGING - INTRAORAL - COMPREHENSIVE SERIES OF RADIOGRAPHIC IMAGES Routine 03/18/2021 12:00 AM EDT from Last 3 Months or Most Recently Relevant to Health Maintenance Results * XR Chest 2 Views (11/01/2024 2:39 PM EST) Anatomical Region Laterality Modality Chest Radiographic Loli ging 11/01/2024 2:39 PM EST Narrative 11/01/2024 2:41 PM EST ? [facility] ?[address] [place] [address] ?XRay Report ? Signed ? Patient: David,Kate ?MR#: [id number] ?? [id number] ? : 1975 ?Acct:[id number] ? Age/Sex: 48 / F ?ADM Date: 11/01/24 ? Loc: HO.ED ? Attending Dr: ? Ordering Physician: Amy Pan ?? Date of Service: 11/01/24 ?? Procedure(s): XR chest 2V ?? Accession Number(s): [id number] ? cc: Irving Burns MD; Amy Pan ? CLINICAL HISTORY: wheezing ? 2 view chest x-ray ? Comparison: None ? Findings: ?? The lungs are clear. ?? Heart size is normal. ?? No acute fracture. ? IMPRESSION: ?? 1. No acute findings. ? This document has been electronically signed by: Ana Villanueva MD on ?? 11/01/2024 14:39:33 ? Dictated By: ?Ana Villanueva MD ? Signed By: ?<Electronically signed by Ana Villanueva MD in OV> ? 11/01/24 1440 ? DD/ 1439 ? TD/TT: 11/01/24 1439 ? Graphic Art Sales Representative: ? Procedure Note Donfredy, Image - 11/01/[address] [address] XRay Report Signed Patient: Kate HernandezMR#: [id number] : 1975Acct:[id number] Age/Sex: 48 / FADM Date: 11/01/24 Loc: HO.ED Attending Dr: Ordering Physician: Amy Pan Date of Service: 11/01/24 Procedure(s): XR chest 2V Accession Number(s): [id number] cc: Irving Burns MD; Amy Pan CLINICAL HISTORY: wheezing 2 view chest x-ray Comparison: None Findings: The lungs are clear. Heart size is normal. No acute fracture. IMPRESSION: 1. No acute findings. This document has been electronically signed by: Ana Villanueva MD on 11/01/2024 14:39:33 Dictated By: Ana Villanueva MD Signed By: <Electronically signed by Ana Villanueva MD in OV> 11/01/24 1440 DD/ 1439 TD/TT: 11/01/24 1439 Graphic Art Sales Representative: [facility] External Provider IMG XR PROCEDURES Edited Result - Final * High Sensitivity Troponin I (11/01/2024 1:21 PM EST) Pathologist [facility] TROPONIN I HIGH SENSITIVITY <2.7 <3.5 - 17.0 ng/L [facility] Comment:The Potter high sens itivity Troponin-I results should beused in conjunction with other diagnostic information suchas ECG, clinical observations and information, and patientsymptoms to aid in the diagnosis of PR. 11/01/2024 1:21 PM EST 11/01/2024 1:25 PM EST Generic External Data Provider LAB BLOOD ORDERAB LES Final Result [facility] [address] [place] [phone] * (ABNORMAL) SARS-CoV-2 RNA, Influenza A/B, and RSV RNA, Ql NAAT (11/01/2024 1:21 PM EST) Pathologist [facility] Influenza A PCR POSITIVE(A) Negative [facility] Influenza B PCR NEGATIVE Negative [facility] Resp Syncy Virus RNA Qual PCR NEGATIVE Negative [facility] SARS COV2 PCR NEGATIVE Negative [facility] Comment:All test results mus t be correlated with clinical findings.Negative results do not preclude SARS-CoV2, influenza Avirus, influenza B virus and/or RSV infectionand should not be used as the sole basis for treatment orother patient management decisions. Negative results must becombined with clinical observations, patient history, andepidemiological information.This test has not been evaluated for monitoring treatment ofinfection.This test has been authorized by the FDA under an EmergencyUse Authorization (EUA) for use by authorized laboratories.Testing performed on the [employer] GeneXpert utilizingreal-time RT-PCR.All SARS CoV2 and positive influenza A/B results arereported to [facility]. 11/01/2024 1:21 PM EST 11/01/2024 1:27 PM EST us Generic External Data Provider LAB MICROBIOLOGY - GENERAL ORDERABLES Final Result [facility] [address] [place] [address] [phone] * (ABNORMAL) CBC auto differential (11/01/2024 1:21 PM EST) White Blood Count 3.5(L) 4.8 - 10.8 X10*3/uL [facility] Red Blood Count 5.36 4.20 - 5.50 X10*6/uL [facility] Hemoglobin 14.8 12.0 - 16.0 g/dl [facility] Hematocrit 41.8 37.0 - 47.0 % [facility] Mean Corpuscular Volume 78.0(L) 80.0 - 98.0 fL [facility] Mean Corpuscular Hemoglobin 27.6 27.0 - 33.0 pg [facility] Mean Corpuscular HGB Conc 35.4(H) 31.0 - 35.0 g/dl [facility] Red Cell Distribution Width 13.2 11.0 - 16.0 % [facility] Platelet Count 195 160 - 400 X10*3/uL [facility] Mean Platelet Volume 11.6 9.4 - 12.3 fL [facility] Neutrophils Percent Auto 38.1(L) 45 - 73 % [facility] Imm Gran Pct Auto 0.0 0.0 - 0.4 % [facility] Lymphocytes Percent Auto 48.0(H) 20 - 40 % [facility] Monocytes Percent Auto 13.3(H) 2 - 11 % [facility] Eosinophils Percent Auto 0.3 0 - 4 % [facility] Basophils Percent Auto 0.3 0 - 2 % [facility] NRBC Pct Auto 0.0 0.0 - 0.2 /100WBC [facility] Neutrophils Absolute Auto 1.3(L) 2.0 - 8.3 x10*3/uL [facility] Imm Gran Abs Auto 0.00 0.00 - 0.03 X10*3/uL [facility] Lymphocytes Absolute Auto 1.7 1.2 - 4.9 X10*3/uL [facility] Monocytes Absolute Auto 0.5 0.1 - 1.2 X10*3/uL [facility] Eosinophils Absolute Auto 0.0 0.0 - 0.4 X10*3/uL [facility] Basophils Absolute Auto 0.0 0.0 - 0.2 X10*3/uL [facility] NRBC Abs Auto 0.000 0.0 - 0.012 X10*3/uL [facility] 11/01/2024 1:21 PM EST 11/01/2024 1:25 PM EST us Generic External Data Provider LAB BLOOD ORDERAB LES Final Result Performing Organization Address City/[facility]/ZIP Co de Phone Number [facility] [address] [place] [phone] * Magnesium (11/01/2024 1:21 PM EST) Pathologist [facility] Magnesium 2.3 1.6 - 2.6 mg/dL [facility] 11/01/2024 1:21 PM EST 11/01/2024 1:25 PM EST Generic External Data Provider LAB BLOOD ORDERAB LES Final Result Performing Organization Address [facility] Co de Phone Number [facility] [address] [place] [phone] * (ABNORMAL) Comprehensive Metabolic Panel (11/01/2024 1:21 PM EST) Pathologist [facility] Sodium 138 135 - 145 mmol/L [facility] Potassium 4.1 3.3 - 5.1 mmol/L [facility] Comment:Mild Hemolysis.Inter pret result with caution Chloride 105 96 - 108 mmol/L [facility] Carbon Dioxide 21(L) 22 - 29 mmol/L [facility] Anion Gap 16 12 - 20 [facility] Urea Nitrogen (BUN) 11 9 - 16 mg/dL [facility] Creatinine, Serum 0.79 0.5 - 1.4 mg/dL [facility] Creatinine Clr Calc Pharmacy 79.1 [facility] Comment:Provided height and weight: 154.94 cm,75.296 kg.eGFR (calculated from the MDRD study equation) and eCrCl(calculated from the Cockcroft-Gault equation) are based ondifferent parameters and may not yield comparable results.If eCrCl result is absurd, please check patient'sheight/weight. Estimated Glomerular Filt Rate >60 [facility] Comment:Chronic Kidney Disea se: Estimated GFR < 60 mL/min/1.62h6Wczgyw Kidney Disease: Estimated GFR < 15 mL/min/1.73m2 Glucose 102 60 - 115 mg/dL [facility] Calcium 9.7 8.4 - 10.2 mg/dL [facility] Bilirubin, Total 0.4 0.0 - 1.0 mg/dL [facility] Aspartate Amino Transferase 98(H) 5 - 31 U/L [facility] Comment:Mild Hemolysis.Inter pret result with caution Alanine Aminotransferase 118(H) 0 - 31 U/L [facility] Total Protein 9.3(H) 6.5 - 8.0 g/dL [facility] Comment:Mild Hemolysis.Inter pret result with caution Albumin Level 4.5 3.5 - 5.0 g/dL [facility] Alkaline Phosphatase 76 39 - 117 U/L [facility] 11/01/2024 1:21 PM EST 11/01/2024 1:25 PM EST us Generic External Data Provider LAB BLOOD ORDERAB LES Final Result [facility] [address] [place] [phone] * BI Mammogram Screening Tomosynthesis Bilateral (12/29/2023 10:40 AM EDT) Anatomical Region Laterality Modality Breast Bilateral Mammography 12/29/2023 10:4 0 AM EDT Narrative 01/05/2024 9:50 PM EDT ? [facility] ? [address] ?[place] [address] ? Mammography Report ? Signed ? Patient: David,Kate ?MR#: [id number] ?? [id number] ? : 1975 ?Acct:[id number] ? Age/Sex: 48 / F ?ADM Date: 12/29/23 ? Loc: HO.MAMMO ? Attending Dr: Irving So MD ? Ordering Physician: Irving Burns MD ?Res ?? ults: 1Negative ? Date of Service: 12/29/23 ?Follow Up: 1 Year From Orig ?? inal Mammogram ? Procedure(s): MM tomosynthesis screening BI ?? Accession Number(s): [id number] ? cc: Irving Burns MD ? EXAMINATION: ?? MM SCREENING DIGITAL BREAST TOMOSYNTHESIS, BILATERAL ? CLINICAL INFORMATION: ? Screening. Asymptomatic. ? COMPARISON: ?? Mammography: This study is compared with prior exams dating back to ?? 2019. ? TECHNIQUE: ?? Digital breast tomosynthesis is performed in both the craniocaudal and ?? mediolateral oblique views along with computer-aided detection (CAD). ?? Synthesized 2D images are generated from the tomosynthesis. ? FINDINGS: ?? The breasts are heterogeneously dense, which may obscure small masses ?? (ACR BI-RADS breast composition Category c). ? There are no significant masses, abnormal calcifications, or other ?? abnormalities. ? MM/MM tomosynthesis screening BI ?? IMPRESSION: ?? No mammographic evidence of malignancy. ? ASSESSMENT: ? BI-RADS BI-RADS 1 - Negative ? RECOMMENDATION: ?? Routine annual mammography screening. ? 1 year F/U ? This examination should not preclude the clinical evaluation of a ?? suspicious palpable abnormality. ? This patient's information was entered into a reminder system with a ?? target due date for their next mammogram. ? Dictated By: ?Cindy Wood MD ? Signed By: ?<Electronically signed by Cindy Wood MD in OV> ? 04/13/24 2147 ? DD/ 1040 ? TD/TT: ? Graphic Art Sales Representative: ? Procedure Note Alberto, Image - 01/05/2024 Rk [facility] [address] [place] [address] Mammography Report Signed Patient: Kate HernandezMR#: [id number] : 1975Acct:[id number] Age/Sex: 48 / FADM Date: 12/29/23 Loc: HO.MAMMO Attending Dr: Irving So MD Ordering Physician: Irving Burns ults: 1Negative Date of Service: 12/29/23Follow Up: 1 Year From Orig inal Mammogram Procedure(s): MM tomosynthesis screening BI Accession Number(s): [id number] cc: Irving Burns MD EXAMINATION: MM SCREENING DIGITAL BREAST TOMOSYNTHESIS, BILATERAL CLINICAL INFORMATION: Screening. Asymptomatic. COMPARISON: Mammography: This study is compared with prior exams dating back to 2019. TECHNIQUE: Digital breast tomosynthesis is performed in both the craniocaudal and mediolateral oblique views along with computer-aided detection (CAD). Synthesized 2D images are generated from the tomosynthesis. FINDINGS: The breasts are heterogeneously dense, which may obscure small masses (ACR BI-RADS breast composition Category c). There are no significant masses, abnormal calcifications, or other abnormalities. MM/MM tomosynthesis screening BI IMPRESSION: No mammographic evidence of malignancy. ASSESSMENT: BI-RADS BI-RADS 1 - Negative RECOMMENDATION: Routine annual mammography screening. 1 year F/U This examination should not preclude the clinical evaluation of a suspicious palpable abnormality. This patient's information was entered into a reminder system with a target due date for their next mammogram. Dictated By: Cindy Wood MD Signed By: <Electronically signed by Cindy Wood MD in OV> 01/05/24 2147 DD/ 1040 TD/TT: Graphic Art Sales Representative: [facility] Clara So MD IMG BI PROCEDURES Final Result * HIV-1 RNA, Quantitative, Real-Time PCR with Reflex to Genotype (RTI, PI, Integrase) (01/09/2023 8:35 AM EDT) Pathologist [facility] HIV 1 RNA, QN PCR NOT DETECTED copies/mL [facility] [employer] [facility], HIV 1 RNA, QN PCR NOT DETECTED Log copies/mL [facility] [employer] [facility], Comment: REFERENCE RANGE: NOT DETECTED copies/mL ?NOT DETECTED ??Log copies/mL This test was performed using Real-Time Polymerase Chain Reaction. Reportable range is 20 to 10,000,000 copies/mL (1.30-7.00 Log copies/mL). 01/09/2023 8:35 AM EDT 01/09/2023 8:37 AM EDT Narrative [facility] - 01/12/2023 1:32 PM EDT FASTING:YES FASTING: YES Irving So MD LAB BLOOD ORDERABL ES Final Result Performing Organization Address [facility] Co de Phone Number [address], [facility] [place] [address] [employer], [address] [place] [address] * Hepatitis C Antibody with Reflex to HCV, RNA, Quantitative, Real-Time PCR (01/09/2023 8:35 AM EDT) Pathologist [facility] Hepatitis C Antibody NON-REACT MIRIAN NON-REACT MIRIAN [employer] [place] [facility] Index 0.10 <1.00 [employer] [place] [facility] Comment: HCV antibody was non-reactive. There is no laboratory evidence of HCV infection. In most cases, no further action is required. However, if recent HCV exposure is suspected, a test for HCV RNA (test code 75247) is suggested. For additional information please refer to http://education.[employer]/faq/GNP29i1 (This link is being provided for informational/ educational purposes only.) Blood Venous blood specimen / Unknown 01/09/2023 8:35 AM EDT 01/09/2023 8:37 AM EDT Narrative [facility] - 01/12/2023 1:32 PM EDT FASTING:YES FASTING: YES Irving So MD LAB BLOOD ORDERABL ES Final Result Performing Organization Address City/[facility]/ZIP Co de Phone Number [address], [place] [address] [employer] [place] [address] [place] [phone] * HPV mRNA E6/E7 w/Reflex to HPV Genotypes 16, 18/45 (08/21/2022 11:06 AM EST) HPV nRNA E6/E7 Not Detected Not Detected [facility] Comment:Methodology: Transcr iption-Mediated AmplificationThis assay detects E6/E7 viral messenger RNA (mRNA) from 14high-risk HPV types (16,18,31,33,35,39,45,51,52,56,58,59,66,68).Cervical sources are required for HPV testing.If a vaginal source from a patient who has had atotal hysterectomy with removal of cervix wassubmitted, please contact the testing laboratoryfor alternative testing options.For additional information, please refer [email or web address] Shareholder/faq/VLR353g5(This link if provided for information/educational purposes only.)THIS TEST WAS PERFORMED AT:[facility] [place], [place] [address],[place] [address]KPFFKEDILBERTO CHAMBERS MD HPV mRNA E6/E7 [facility] HPV 16 RNA [facility] HPV 18/45 RNA [facility] 08/21/2022 11:0 6 AM EST 08/21/2022 12:00 PM EST [facility] External Provider LAB CYT OLOGY ORDERABLES Final Result Performing Organization Address City/State/[facility] Co de Phone Number [facility] [address] [place] [address] [phone] * Pap Smear (08/21/2022 11:06 AM EST) 08/21/2022 11:0 6 AM EST 08/21/2022 12:00 PM EST Narrative [facility] - 09/11/2022 3:54 PM EST ----- ------- Name: Kate Hernandez ?Age/Sex: 46/F ? : 1975 Unit#: [id number] ?? Attend Dr: TeriNatalie DAVE ?Re08/21/22 ?Status: DEP REF ? Location: HO.LNP ?Disch: ? ----- ------- SPEC : [id number] ?RECD: 08/21/22-1200 ? STATUS: ??SOUT ? REQ NUM: [id number] ? EDNA: 08/21/22-1106 ? SUBM DR: TeriNatalie DAVE ? ENTERED: ??08/22/2245 ?SP TYPE: Pap Smr ?OTHR DR: ? ORDERED: ??Pap Smear ? Interpretation ?? Satisfactory for evaluation. ?? Negative for intraepithelial lesion or malignancy. ? HPV mRNA E6/E7: ?NOT DETECTED ? This assay detects E6/E7 viral messenger RNA (mRNA) from 14 high-risk HPV types (16, 18, ?? 31, 33, 35, 39, 45, 51, 52, 56, 58, 59, 66, 68) ? HPV testing performed by [employer] [facility] [facility], [place], [place]. ??See reference laboratory ?? portion of the EMR for entire report. ?Clinical Information LMP: No menses Previous PAP test: 05/17/21, WNL ? Material Received ?? ThinPrep-Cervical ----- ------- Signed (signature on file) Ade Tinoco Eloisa 09/11/22 [id number] ? ----- ------- ? END OF REPORT ? us [facility] External Provider LAB CYT OLOGY ORDERABLES Final Result [facility] [address] [place] [address] [phone] * Hm Colonoscopy (11/01/2021 8:29 AM EST) us Historical Provider HEALTH MAINTENANCE Final Result from Last 3 Months or Most Recently Relevant to Health Maintenance Insurance [facility] JAZZY GOODMAN [id number] Care Teams Paint Tester Relationship Specialty Start Date End Date ElizabethIrving Mckinney MD [address] [place] [address] JAZZY Goodman [address] PCP - General Internal Medicine 02/13/20
--- OUTSIDE RECORDS SUMMARY | 2024-11-01 15:09 | XMS_ITS | Encounter Summary ---
Author Organization [employer] Address [address] [place] [address] 7t [place] [address] Care Team Providers Care Calenderer Name Role Phone Irving Burns MD Primary Care Prov ider Encounter Details Date Type Department Care Team (Late st Contact Info) Description 08/24/2022 Abstract [facility] [address] [place] [address] Provider, MD Delmer Social History Tobacco Use Types Packs/Day Years Used Date Smoking Tobacco: Never Assessed Comments Unknown Sex and Gender Information Value Date Recorded Sex Assigned at Female 07/24/2022 10:14 AM EDT Legal Sex Female 10:14 AM EDT Gender Identity Female 07/24/2022 10:14 AM EDT Sexual Orientation Straight 07/24/2022 10 :14 AM EDT documented as of this encounter Plan of Treatment Not on file documented as of this encounter Visit Diagnoses Not on filedocumented in this encounter Care Teams Calenderer Relationship Specialty Start Date End Date Irving Burns MD [address] [place] [address] PCP - General Internal Medicine 02/13/20 documented as of this encounter
--- OUTSIDE RECORDS SUMMARY | 2024-11-01 15:09 | XMS_ITS | Encounter Summary ---
Author Organization [employer] Address [address] [facility] 7t [place] [address] Care Team Providers Care Ecmo Specialist Name Role Phone Irving Burns MD Primary Care Prov ider Encounter Details Date Type Department Care Team ([facility] st Contact Info) Description 11/27/2023 Orders Only [facility] [address] [place], [place] [phone] Irving Burns MD [address] [place] [address] Mixed hyperlipidemia (Primary Dx) Social History Tobacco Use Types Packs/Day Years [...] on file documented as of this encounter Procedures Procedure Name Priority Date/Time Associated Diagnosis Comments LIPID PANEL, STANDARD Routine 11/30/2023 8:39 AM EST Mixed hyperlipidemia COMPREHENSIVE METABOLIC PANEL Routine 11/30/2023 8:39 AM EST Mixed hyperlipidemia documented in this encounter Results * (ABNORMAL) Lipid Panel, Standard (11/30/2023 8:39 AM EST) Triglycerides 434(H) <150 mg/dL [facility] Comment:Desirable Triglyceri de: less than 150 mg/dLBorderline High Triglyceride 150-199 mg/dLHigh Triglyceride: 200-499 mg/dLVery High Triglyceride: greater than or equal to 5OO mg/dL Cholesterol 299(H) <200 mg/dL [facility] Comment:Desirable Cholestero l: less than 200 mg/dLBorderline High Cholesterol: 200-239 mg/dLHigh Cholesterol: greater than 239 mg/dL LDL Cholesterol Calculated TNP <100 mg/dL [facility] Comment:Unable to calculate the LDL. The formula of Friedwald,Watt, and Ashley is only valid if the triglycerides areless than 400 mg/dl. HDL Cholesterol 42 >40 mg/dL [facility] Comment:Desirable HDL: great er than 40 mg/dL Note: This HDL assay may give artificially low results in patients with liver disease. Blood Venous blood specimen / Unknown 11/30/2023 8:39 AM EST 11/30/2023 3:01 PM EST Irving So MD LAB BLOOD ORDERABL ES Final Result [facility] [address] [place], [place] [phone] * (ABNORMAL) Comprehensive Metabolic Panel (11/30/2023 8:39 AM EST) Sodium 140 135 - 145 mmol/L [facility] Potassium 4.4 3.3 - 5.1 mmol/L [facility] Chloride 103 96 - 108 mmol/L [facility] Carbon Dioxide 25 22 - 29 mmol/L [facility] Anion Gap 16 12 - 20 [facility] Urea Nitrogen (BUN) 12 9 - 16 mg/dL [facility] Creatinine, Serum 0.73 0.5 - 1.4 mg/dL [facility] Estimated Glomerular Filt Rate >60 [facility] Comment:NOTE: For -Am erican individuals, multiply the result by 1.210.Chronic Kidney Disease: Estimated GFR < 60 mL/min/1.97b2Jxrpct Kidney Disease: Estimated GFR < 15 mL/min/1.73m2 Glucose 41(LL) 60 - 115 mg/dL [facility] Comment:Critical value for t est(s): GLUR Results called to and readback by: CINDY Mehta Person calling: MALIKA Date:11/30/23Time: 1611 Calcium 10.0 8.4 - 10.2 mg/dL [facility] Bilirubin, Total 0.3 0.0 - 1.0 mg/dL [facility] Aspartate Amino Transferase 20 5 - 31 U/L [facility] Alanine Aminotransferase 36(H) 0 - 31 U/L [facility] Total Protein 8.3(H) 6.5 - 8.0 g/dL [facility] Albumin Level 4.3 3.5 - 5.0 g/dL [facility] Alkaline Phosphatase 88 39 - 117 U/L [facility] Blood Venous blood specimen / Unknown 11/30/2023 8:39 AM EST 11/30/2023 3:01 PM EST us Irving So MD LAB BLOOD ORDERABL ES Final Result [facility] [address] [place] [address] [phone] documented in this encounter Visit Diagnoses Diagnosis Mixed hyperlipidemia- Primary documented in this encounter Additional Health Concerns Assessment Noted Time PHQ-9 Depression Total Score: 23 023 9:37 AM EDT documented as of this encounter Care Teams Ecmo Specialist Relationship Specialty Start Date End Date Irving Burns MD [address] [place] [phone] PCP - General Internal Medicine 02/13/20 documented as of this encounter
--- OUTSIDE RECORDS SUMMARY | 2024-11-01 15:09 | XMS_ITS | Encounter Summary ---
Author Organization [employer] Address [address] [place] [address] 7t [place] [address] Care Team Providers Care Rnfa Name Role Phone Irving Burns MD Primary Care Prov ider Encounter Details Date Type Department Care Team (Latest Contact Info) Description 01/29/2019 Abstract [facility] Dental, Provider, DDS Social History Tobacco Use Types Packs/Day Years [...] on filedocumented in this encounter Care Teams Rnfa Relationship Specialty Start Date End Date Irving Burns MD [address] [place] [address] PCP - General Internal Medicine 02/13/20 documented as of this encounter
--- OUTSIDE RECORDS SUMMARY | 2024-11-01 15:10 | XMS_ITS | Encounter Summary ---
Author Organization [employer] Address [address] [facility] [address] [place] [address] Care Team Providers Care Operational Test Mechanic Name Role Phone Irving Burns MD Primary Care Prov ider Encounter Details Date Type Department Care Team ([facility] st Contact Info) Description 01/14/2024 Orders Only [facility] [address] [place] [address] Provider, MD Delmer Social History Tobacco Use [...] Procedure Name Priority Date/Time Associated Diagnosis Comments HM COLONOSCOPY Routine 11/01/2021 8:29 AM EST documented in this encounter Results * Hm Colonoscopy (11/01/2021 8:29 AM EST) us Historical Provider HEALTH MAINTENANCE Final Result documented in this encounter Visit Diagnoses Not on filedocumented in this encounter Additional Health Concerns Assessment Noted Time PHQ-9 Depression Total Score: 23 023 9:37 AM EDT documented as of this encounter Care Teams Operational Test Mechanic Relationship Specialty Start Date End Date Irving Burns MD [address] [place] [phone] PCP - General Internal Medicine 02/13/20 documented as of this encounter
--- OUTSIDE RECORDS SUMMARY | 2024-11-01 15:10 | XMS_ITS | Encounter Summary ---
Author Organization [employer] Address [address] [facility] 7t [place] [address] Care Team Providers Care Brick Tender Name Role Phone Irving Burns MD Primary Care Prov ider Reason for Visit * Reason Onset Date Comments Med Refill 02/07/2024 Encounter Details Date Type Department Care Team ([facility] st Contact Info) Description 02/07/2024 Telephone [facility] [address] [place] [address] Irving Burns MD [address] [place] [address] Med Refill Social History Tobacco Use Types Packs/Day Years [...] encounter Miscellaneous Notes * Telephone Encounter - Jose Mckeon - 02/07/2024 9:07 AM EDT TC from pt requesting medication refill. Medications needing refill : loratadine (Claritin) 10 MG tablet To be sent to: [facility] [place], [place] - [address] [place] [address] documented in this encounter Plan of Treatment Not on file documented as of this encounter Visit Diagnoses Not on filedocumented in this encounter Additional Health Concerns Assessment Noted Time PHQ-9 Depression Total Score: 23 023 9:37 AM EDT documented as of this encounter Care Teams Brick Tender Relationship Specialty Start Date End Date Irving Burns MD [address] [place] [address] PCP - General Internal Medicine 02/13/20 documented as of this encounter
--- OUTSIDE RECORDS SUMMARY | 2024-11-01 15:10 | XMS_ITS | Encounter Summary ---
Author Organization [employer] Address [address] [facility] 7t [place] [address] Care Team Providers Care Glost Kiln Operator Name Role Phone Irving Burns MD Primary Care Prov ider Encounter Details Date Type Department Care Team ([facility] Contact Info) Description 11/01/2024 Orders Only GENERIC EXTERNAL DATA DEPARTMENT Provider, Generic External Data Social History Tobacco Use Types Packs/Day Years [...] TROPONIN I Routine 11/01/2024 1:21 PM EST SARS COV2/INFLUENZA A/B AND RSV RNA QL NAAT Routine 11/01/2024 1:21 PM EST CBC WITH AUTO DIFFERENTIAL Routine 11/01/2024 1:21 PM EST MAGNESIUM Routine 11/01/2024 1:21 PM EST COMPREHENSIVE METABOLIC PANEL Routine 11/01/2024 1:21 PM EST documented in this encounter Results * XR Chest 2 Views (11/01/2024 2:39 PM EST) Anatomical Region Laterality Modality Chest Radiographic Loli ging 11/01/2024 2:39 PM EST Narrative 11/01/2024 2:41 PM EST ? [facility] ?[address] ?[place] [address] ?XRay Report ? Signed ? Patient: David,Kate ?MR#: [id number] ?? [id number] ? : 1975 ?Acct:[id number] ? Age/Sex: 48 / F ?ADM Date: 02/08/25 ? Loc: HO.ED ? Attending Dr: ? Ordering Physician: Amy Pan ?? Date of Service: 11/01/24 ?? Procedure(s): XR chest 2V ?? Accession Number(s): [id number] ? cc: Irving Burns MD; Amy Pan [...] DD/ 1439 ? TD/TT: 11/01/24 1439 ? [employer]: ? Procedure Note Donotuseinterpreter, Image - 11/01/[address] [address] XRay Report Signed Patient: Kate HernandezMR#: [id number] : 1975Acct:[id number] Age/Sex: 48 / FADM Date: 11/01/24 Loc: .ED Attending Dr: Ordering Physician: Amy Pan Date of Service: 11/01/24 Procedure(s): XR chest 2V Accession Number(s): [id number] cc: Irving Burns MD; Amy Pan CLINICAL [...] OV> 11/01/24 1440 DD/ 1439 TD/TT: 11/01/24 143 [employer]: us [facility] External Provider IMG XR PROCEDURES Edited Result - Final * (ABNORMAL) SARS-CoV-2 RNA, Influenza A/B, and RSV RNA, Ql NAAT (11/01/2024 1:21 PM EST) Influenza A PCR POSITIVE(A) Negative [facility] Influenza B PCR NEGATIVE Negative [facility] Resp Syncy Virus RNA Qual PCR NEGATIVE Negative [facility] SARS COV2 PCR NEGATIVE Negative [facility] Comment:All test results mus t [...] use by authorized laboratories.Testing performed on the iwi GeneXpert utilizingreal-time RT-PCR.All SARS CoV2 and positive influenza A/B results arereported to [facility]. 11/01/2024 1:21 PM EST 11/01/2024 1:27 PM EST Generic External Data Provider LAB MICROBIOLOGY - GENERAL ORDERABLES Final Result Performing Organization Address [facility]/ZIP Co de Phone Number [facility] [address] [place] [phone] * High Sensitivity Troponin I (11/01/2024 1:21 PM EST) [facility] TROPONIN I HIGH SENSITIVITY <2.7 <3.5 - 17.0 ng/L [facility] Comment:The Potter high sens itivity Troponin-I results should beused in conjunction with other diagnostic information suchas ECG, clinical observations and information, and patientsymptoms to aid in the diagnosis of [place]. 11/01/2024 1:21 PM EST 11/01/2024 1:25 PM EST Generic External Data Provider LAB BLOOD ORDERAB LES Final Result Performing Organization Address [facility] Co de Phone Number [facility] [address] [place] [phone] * Magnesium (11/01/2024 1:21 PM EST) Magnesium 2.3 1.6 - 2.6 mg/dL [facility] 11/01/2024 1:21 PM EST 11/01/2024 1:25 PM EST us Generic External Data Provider LAB BLOOD ORDERAB LES Final Result [facility] [address] [place] [address] [phone] * (ABNORMAL) Comprehensive Metabolic Panel (11/01/2024 1:21 PM EST) Sodium 138 135 - 145 mmol/L [facility] Potassium 4.1 3.3 - 5.1 mmol/L [facility] Comment:Mild Hemolysis.Inter pret result with caution Chloride 105 96 - 108 mmol/L [facility] Carbon Dioxide 21(L) 22 - 29 mmol/L [facility] Anion Gap 16 12 - 20 [facility] Urea Nitrogen (BUN) 11 9 - 16 mg/dL [facility] Creatinine, Serum 0.79 0.5 - 1.4 mg/dL [facility] Creatinine Clr Calc Pharmacy 79.1 [facility] Comment:Provided height and weight: 154.94 cm,75.296 kg.eGFR (calculated from the MDRD study equation) and eCrCl(calculated from the Cockcroft-Gault equation) are based ondifferent parameters and may not yield comparable results.If eCrCl result is absurd, please check patient'sheight/weight. Estimated Glomerular Filt Rate >60 [facility] Comment:Chronic Kidney Disea se: Estimated GFR < 60 mL/min/1.41t3Emfilu Kidney Disease: Estimated GFR < 15 mL/min/1.73m2 Glucose 102 60 - 115 mg/dL [facility] Calcium 9.7 8.4 - 10.2 mg/dL [facility] Bilirubin, Total 0.4 0.0 - 1.0 mg/dL [facility] Aspartate Amino Transferase 98(H) 5 - 31 U/L [facility] Comment:Mild Hemolysis.Inter pret result with caution Alanine Aminotransferase 118(H) 0 - 31 U/L [facility] Total Protein 9.3(H) 6.5 - 8.0 g/dL [facility] Comment:Mild Hemolysis.Inter pret result with caution Albumin Level 4.5 3.5 - 5.0 g/dL [facility] Alkaline Phosphatase 76 39 - 117 U/L [facility] 11/01/2024 1:21 PM EST 11/01/2024 1:25 PM EST us Generic External Data Provider LAB BLOOD ORDERAB LES Final Result [facility] [address] [place] [phone] * (ABNORMAL) CBC auto differential (11/01/2024 1:21 PM EST) White Blood Count 3.5(L) 4.8 - 10.8 X10*3/uL [facility] Red Blood Count 5.36 4.20 - 5.50 X10*6/uL [facility] Hemoglobin 14.8 12.0 - 16.0 g/dl [facility] Hematocrit 41.8 37.0 - 47.0 % [facility] Mean Corpuscular Volume 78.0(L) 80.0 - 98.0 fL [facility] Mean Corpuscular Hemoglobin 27.6 27.0 - 33.0 pg [facility] Mean Corpuscular HGB Conc 35.4(H) 31.0 - 35.0 g/dl [facility] Red Cell Distribution Width 13.2 11.0 - 16.0 % [facility] Platelet Count 195 160 - 400 X10*3/uL [facility] Mean Platelet Volume 11.6 9.4 - 12.3 fL [facility] Neutrophils Percent Auto 38.1(L) 45 - 73 % [facility] Imm Gran Pct Auto 0.0 0.0 - 0.4 % [facility] Lymphocytes Percent Auto 48.0(H) 20 - 40 % [facility] Monocytes Percent Auto 13.3(H) 2 - 11 % [facility] Eosinophils Percent Auto 0.3 0 - 4 % [facility] Basophils Percent Auto 0.3 0 - 2 % [facility] NRBC Pct Auto 0.0 0.0 - 0.2 /100WBC [facility] Neutrophils Absolute Auto 1.3(L) 2.0 - 8.3 x10*3/uL [facility] Imm Gran Abs Auto 0.00 0.00 - 0.03 X10*3/uL [facility] Lymphocytes Absolute Auto 1.7 1.2 - 4.9 X10*3/uL [facility] Monocytes Absolute Auto 0.5 0.1 - 1.2 X10*3/uL [facility] Eosinophils Absolute Auto 0.0 0.0 - 0.4 X10*3/uL [facility] Basophils Absolute Auto 0.0 0.0 - 0.2 X10*3/uL [facility] NRBC Abs Auto 0.000 0.0 - 0.012 X10*3/uL [facility] 11/01/2024 1:21 PM EST 11/01/2024 1:25 PM EST us Generic External Data Provider LAB BLOOD ORDERAB LES Final Result Performing Organization Address City/State/[facility] Co de Phone Number [facility] [address] [place] [address] [phone] documented in this encounter Visit Diagnoses Not on filedocumented in this encounter Additional Health Concerns Assessment Noted Time PHQ-9 Depression Total Score: 0 06/20/20 24 10:41 AM EDT documented as of this encounter Care Teams Glost Kiln Operator Relationship Specialty Start Date End Date Irving Burns MD [address] [place] [phone] PCP - General Internal Medicine 02/13/20 documented as of this encounter
--- OUTSIDE RECORDS SUMMARY | 2024-11-01 15:10 | XMS_ITS | Encounter Summary ---
Author Organization [employer] Address [address] [place] [address] 7[address] [place] [address] Care Team Providers Care Ore Miner Name Role Phone Irving Burns MD Primary Care Prov ider Encounter Details Date Type Department Care Team (Latest Contact Info) Description 03/18/2021 Abstract [facility] CONVERSIONS Dental, Provider, DDS Social History Tobacco [...] on filedocumented in this encounter Care Teams Ore Miner Relationship Specialty Start Date End Date Irving Burns MD [address] [place] [address] PCP - General Internal Medicine 02/13/20 documented as of this encounter
== END 2024-11-01 15:08 | disposition home or self-care (01) ==
LOC: HO.ED 15:07
PROVIDERS: Physician Assistant Medical; Emergency Provider Emergency Medicine; PCP Internal Medicine
DX: J10.1 Influenza due to other identified influenza virus with other respiratory manifestations (principal); R05.9 Cough, unspecified; Z03.818 Encounter for observation for suspected exposure to other biological agents ruled out; R53.1 Weakness; R29.700 NIHSS score 0
CPT/HCPCS: 0241U; 71046; 80053; 83735; 84484; 85025; 93005; 99283

== ENCOUNTER → 2024-11-01 12:57 | Outpatient (BNV) | payer OTHER, SELFPAY | PROVIDERS: Emergency Provider Emergency Medicine; PCP Internal Medicine; Visit Provider Radiology Diagnostic Radiology | DX: R06.2 Wheezing (principal) | CPT/HCPCS: 71046 ==

== ENCOUNTER → 2024-11-01 12:57 | Outpatient (BNV) | payer SELFPAY | PROVIDERS: Emergency Provider Emergency Medicine; PCP Internal Medicine; Visit Provider Internal Medicine Cardiovascular Disease | DX: I45.81 Long QT syndrome (principal) | CPT/HCPCS: 93010 ==